=== PATIENT | female | born 1975 | race Caucasian/White ===

== ENCOUNTER 2017-01-13 14:43 | Emergency (ER) | payer MEDICAID ==
[2017-01-13] MEDS ORDERED: HYDROmorphone 1 MG/ML Syringe IVPUSH ONE (14:56)
[2017-01-13] MEDS ORDERED: Sodium Chloride 0.9% 1,000 ML IV ONE (14:56)
[2017-01-13] MEDS ORDERED: Ondansetron 4 MG/2 ML SDV IVPUSH ONE (14:56)
[2017-01-13] MEDS ORDERED: methylPREDNISolone Sodium Succinate 125 MG/2 ML SDV IVPUSH ONE (15:02)
--- NOTE | 2017-01-13 15:02 | EDM.PDOC ---
ED HPI GENERAL MEDICAL PROBLEM - General Stated Complaint: VOMITTING Time Seen by Provider: 01/13/17 14:46 Source of Information: Reports: Patient History Limitations: Reports: No Limitations - History of Present Illness INITIAL COMMENTS - FREE TEXT/NARRATIVE: Patient presents with abdominal pain for a six days, nausea started yesterday and today has frequent vomiting. No diarrhea or constipation and is passing normal stools. She has Crohns, Ulcerative Colitis and Diverticulosis with history of Diverticulitis. She moved here a month ago from [place] when she was no longer able to work and couldn't get medical care. Her mother lives here and pt says "I'll be a frequent flyer here". She takes hydrocodone prn for pain , promethazine prn for N/V, Apriso for Crohns. When she gets these episodes, which has happened numerous times, she usually gets Dilaudid, promethazine, IV steroid. She saw KAITLYNN Benton in clinic yesterday and was given Rx for a steroid that she hasn't received yet in the mail. She says that over the past two years since all this started, she has had to go to ER with exacerbations about every 7-10 days. Shortly before leaving [place] she started the Apriso which along with prednisone seemed to work better than anything else she has tried. The Apriso costs 1600./mo and couldn't afford it in [place] since she didn 't qualify for medical assistance without any dependent children. Until this episode she has gone over a month without exacerbations, which she attributes to the new regimen. She was on a prednisone taper from 100mg x 10 days, 50mg x 10 days, 20 mg x 10 days, 10 mg x 10 days then off. She finished this regimen on January 01 and continued on the Apriso which apparently isn't adequate without the prednisone to control her flares. She is waiting for the new steroid, Budesonide 3 mg (3 tabs/day) which should come in a couple days. Abdomen Pain Score (Numeric/FACES): 10 - Related Data Allergies Allergy/AdvReac Type Severity Reaction Status Date / Time metronidazole [From Flagyl] Allergy Nausea and Verified 01/13/17 15:35 Vomiting morphine Allergy Hives Verified 01/13/17 15:35 Home Meds: Home Meds ClonazePAM [KlonoPIN] 0.5 mg PO BEDTIME 01/13/17 [History] Hydrocodone/Acetaminophen [Hydrocodon-Acetaminophn 10-325] 1 - 2 tab PO Q6H PRN 01/13/17 [History] Mesalamine [Apriso] 1.5 gm PO DAILY 01/13/17 [History] Prednisone [IJD: predniSONE] 20 mg PO WITHBREAKFAST 01/13/17 [History] Promethazine [Phenergan] 25 mg PO Q4H PRN 01/13/17 [History] ED ROS GENERAL - Review of Systems Review Of Systems: See Below Constitutional: Denies: Fever, Chills, Malaise, Weakness HEENT: Denies: Ear Pain, Throat Pain, Vision Change Respiratory: Denies: Shortness of Breath, Cough Cardiovascular: Denies: Chest Pain, Lightheadedness, Syncope GI/Abdominal: Reports: Abdominal Pain, Nausea, Vomiting. Denies: Constipation, Diarrhea : Denies: Dysuria, Flank Pain Musculoskeletal: Reports: No Symptoms Skin: Denies: Cyanosis, Jaundice, Mottled, Pallor, Diaphoresis Neurological: Denies: Confusion, Dizziness, Seizure, Syncope Psychiatric: Reports: Anxiety (takes Klonopin). Denies: Agitation ED EXAM, GI/ABD - Physical Exam Exam: See Below Exam Limited By: No Limitations General Appearance: Alert, WD/WN, No Apparent Distress Eyes: Bilateral: Normal Appearance, EOMI Ears: Normal External Exam, Hearing Grossly Normal Nose: Normal Inspection, No Blood Throat/Mouth: Normal Inspection, Normal Lips, Normal Voice, No Airway Compromise Head: Atraumatic, Normocephalic Neck: Normal Inspection, Supple, Non-Tender, Full Range of Motion Respiratory/Chest: No Respiratory Distress, Lungs Clear, Normal Breath Sounds, No Accessory Muscle Use Cardiovascular: Regular Rate, Rhythm, No Murmur GI/Abdominal Exam: Normal Bowel Sounds, Soft, No Organomegaly, Tender (general, non-localized) Back Exam: No: CVA Tenderness (L), CVA Tenderness (R) Extremities: Normal Inspection, Normal Range of Motion, Non-Tender, No Pedal Edema Neurological: Alert, Oriented, Normal Cognition, No Motor/Sensory Deficits Psychiatric: Normal Affect, Normal Mood Skin Exam: Warm, Dry, Intact, Normal Color, No Rash Course - Vital Signs Last Recorded V/S: Last Vital Signs Temp 98.8 F 01/13/17 15:25 Pulse 122 H 01/13/17 15:25 Resp 20 01/13/17 15:25 BP 134/78 01/13/17 15:25 Pulse Ox 100 01/13/17 15:25 - Orders/Labs/Meds Labs: Laboratory Tests 01/13/17 01/13/17 Range/Units 15:00 15:00 WBC 12.0 H (5.0-10.0) 10^3/uL RBC 4.99 (3.80-5.50) 10^6/uL Hgb 14.7 (12.0-16.0) g/dL Hct 44.4 (37.0-47.0) % MCV 89.0 (82.0-92.0) fL MCH 29.4 (27.0-31.0) pg MCHC 33.0 (32.0-36.0) g/dL RDW 12.5 (11.5-14.5) % Plt Count 212 (150-300) 10^3/uL MPV 7.7 (7.4-10.4) fL Neut % (Auto) 93.1 H (50.0-70.0) % Lymph % (Auto) 5.9 L (20.0-40.0) % [place] % (Auto) 0.8 L (2.0-8.0) % Eos % (Auto) 0.0 L (1.0-3.0) % Baso % (Auto) 0.2 (0.0-1.0) % Neut # (Auto) 11.2 H (2.5-7.0) 10^3/uL Lymph # (Auto) 0.7 L (1.0-4.0) 10^3/uL [place] # (Auto) 0.1 (0.1-0.8) 10^3/uL Eos # (Auto) 0.0 L (0.1-0.3) 10^3/uL Baso # (Auto) 0.0 (0.0-0.1) 10^3/uL Sodium 135 L (136-145) mmol/L Potassium 4.4 (3.3-5.3) mmol/L Chloride 100 (98-115) mmol/L Carbon Dioxide 26.1 (21.0-32.0) mmol/L BUN 9 (6-25) mg/dL Creatinine 0.54 (0.51-1.17) mg/dL Est Cr Clr Drug Dosing TNP Estimated GFR (MDRD) > 60 mL/min Glucose 119 H (70-110) mg/dL Calcium 9.0 (8.7-10.3) mg/dL Total Bilirubin 0.3 (0.2-1.0) mg/dL AST 22 (15-37) U/L ALT 14 (12-78) U/L Alkaline Phosphatase 90 (46-116) IU/L C-Reactive Protein 11.6 H (0.0-0.9) mg/dL Total Protein 7.4 (6.4-8.2) g/dL Albumin 3.24 (3.00-4.80) g/dL Lipase 174 (73-393) U/L Meds: Medications Discontinued Medications Generic Name Dose Route Start Last Admin Trade Name Freq PRN Reason Stop Dose Admin Hydromorphone HCl 1 mg 01/13/17 14:56 01/13/17 15:20 Dilaudid IVPUSH 01/13/17 14:57 1 mg ONETIME ONE Administration Sodium Chloride 1,000 mls @ 999 mls/hr 01/13/17 14:56 01/13/17 15:20 Normal Saline IV 01/13/17 15:56 999 mls/hr .BOLUS ONE Administration Methylprednisolone Sodium Succinate 125 mg 01/13/17 15:02 01/13/17 15:43 Solu-Medrol IVPUSH 01/13/17 15:03 125 mg ONETIME ONE Administration Ondansetron HCl 8 mg 01/13/17 14:56 01/13/17 15:30 Zofran IVPUSH 01/13/17 14:57 8 mg ONETIME ONE Administration - Re-Assessments/Exams Free Text/Narrative Re-Assessment/Exam: 01/13/17 15:57 Labs show WBC 12.0 with 93% neuts and CRP of 11.6; she has no idea what previous CRP results have been. She says her last big workup was in late November with a CT, upper GI, colonoscopy and she was hospitalized for 6 days at that time. She doesn't know if she had diverticulitis at that time. We discussed the difference between diverticulosis and diverticulitis which she didn't know before. She tells me that with her previous episodes/flares she sometimes has been given antibiotics and sometimes not; and also has had fevers with some and others didn't. She has had several CT scans and wants to avoid the radiation if possible. She says her records from [place] were sent to Magda in clinic here. 01/13/17 16:17 Pain dropped to 5/10 after Dilaudid but is back up to 7 now. She says she always has some baseline pain with these flares. Her nausea has started again with the increase in pain. Will give hydrocodone now. Still trying to access her records. 01/13/17 17:20 Patient is now comfortable and ready to go home. [facility] is in the middle of a system update and inaccessible to us so we can't find out her baseline labs. I discussed case with PCP, Magda Tong who doesn't know what past labs are either. Her plan is to get pt off narcotics completely in the near future. The nurse came and informed me that the patient is still having pain and nausea but after further discussion with her she wants to go home and manage with her home meds and wait for the steroid to kick in again rather than be admitted here or get a CT. She says her past episodes without fever didn't require antibiotics and we discussed that this is likely a Crohns flare rather than diverticulitis which she agrees. Patient discharged in stable condition. Departure - Departure Time of Disposition: 17:16 Disposition: Home, Self-Care 01 Condition: Good Clinical Impression: Crohns disease Qualifiers: Gastrointestinal tract location: unspecified location - Discharge Information Additional Instructions: 1. Continue your regular medications as directed. 2. Follow up with your PCP in next couple days if worsening or not resolving, otherwise follow up in 1-2 weeks.
[2017-01-13 15:28] LABS: CHLORIDE,CL 100 mmol/L (98-115); SODIUM,NA 135 mmol/L (136-145)
[2017-01-13] MEDS ORDERED: Acetaminophen/HYDROcodone 325-10 MG Tab PO ONE (16:16)
== END 2017-01-13 17:38 | disposition home or self-care (01) ==
LOC: KA.ED 14:43 → MERGE 14:43 → KA.ED 17:38
DX: K50.90 Crohn's disease, unspecified, without complications (principal); Z88.1 Allergy status to other antibiotic agents; Z79.899 Other long term (current) drug therapy; Z88.5 Allergy status to narcotic agent
CPT/HCPCS: 80053; 83690; 85025; 86140; 96361; 96374; 96375; 99284; A9270; J1170; J2405; J2930; J7030

== ENCOUNTER 2017-02-16 11:39 | Emergency (ER) | payer MEDICAID ==
[2017-02-16] MEDS ORDERED: Sodium Chloride 0.9% 1,000 ML IV ONE (12:03)
[2017-02-16] MEDS ORDERED: HYDROmorphone 1 MG/ML Syringe IVPUSH ONE ×3 (12:04→13:50)
[2017-02-16] MEDS ORDERED: Ondansetron 4 MG/2 ML SDV IVPUSH ONE (12:04)
[2017-02-16] MEDS ORDERED: Promethazine 25 MG/ML SDV ONE (12:34)
[2017-02-16] MEDS ORDERED: Promethazine 12.5 MG in Sodium Chloride 0.9% 50 ML IV PRN (12:44)
[2017-02-16 12:49] LABS: CHLORIDE,CL 105 mmol/L (98-115); SODIUM,NA 142 mmol/L (136-145)
[2017-02-16] MEDS ORDERED: Iopamidol 612 MG/ML 75 ML Bottle IV ONE (13:42)
[2017-02-16] MEDS ORDERED: Iopamidol 755 Mg/ML 75 ML Bottle IVPUSH ONE (13:42)
[2017-02-16] MEDS ORDERED: Sodium Chloride 0.9% 50 ML SDV FLUSH SCH (13:45)
[2017-02-16] MEDS ORDERED: HYDROmorphone 1 MG/ML Syringe ONE (13:49)
[2017-02-16] MEDS ORDERED: metroNIDAZOLE/Normal Saline 500 MG in Premix Bag 1 BAG IV ONE (14:23)
--- NOTE | 2017-02-16 14:45 | EDM.PDOC ---
ED HPI GENERAL MEDICAL PROBLEM - General Chief Complaint: Abdominal Pain Stated Complaint: abdominal pain Time Seen by Provider: 02/16/17 12:00 Source of Information: Reports: Patient, Family (mother) History Limitations: Reports: No Limitations - History of Present Illness INITIAL COMMENTS - FREE TEXT/NARRATIVE: 42-year-old female presents to emergency room with complaints of pain over the last hours. Patient states that she's been recently diagnosed with Crohn's, ulcerative colitis and diverticulitis. She was seen and the admitted in the hospital back in November where she was currently living in [place]. She has recently moved up to [place], [place] where she was born and raised. She has recently transferred her primary care to RENÉ Benton. She's currently on oral prednisone. She is no so over the last 48-72 hours she's had increasing cramping and has been passing mucus in her stool. She denies any blood in her stool and denies hematuria. She has denies much of an appetite. She has not been drinking significant amount of fluids although denies restricting fluids. She notices that the pain is in her lower abdominal area both right and left. She did feel she was having a temperature earlier today and set her temperature was 101.2. She took some Tylenol about an hour before presenting to the emergency room. Her temperature is 97.4. She's not tachycardic and her blood pressure is stable. Did experience some vomiting yesterday and has been continuously nauseated. She does take some Phenergan. She has a prescription for hydrocodone 10/325. She has been taking this about every 6 hours by mouth over the last week. She denies any shortness of breath, chest pain. She denies significant swelling in her legs. She denies any recent upper respiratory infection, cough/congestion. 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 Left Lower Abdomen Pain Score (Numeric/FACES): 8 - Related Data Allergies Allergy/AdvReac Type Severity Reaction Status Date / Time metronidazole [From Flagyl] Allergy Nausea and Verified 02/16/17 12:45 Vomiting morphine Allergy Hives Verified 02/16/17 12:45 Home Meds: Home Meds Hydrocodone/Acetaminophen [Hydrocodon-Acetaminophn 10-325] 1 - 2 tab PO Q6H PRN 01/13/17 [History] Mesalamine [Apriso] 1.5 gm PO DAILY 01/13/17 [History] Prednisone [IJD: predniSONE] 20 mg PO WITHBREAKFAST 01/13/17 [History] Promethazine [Phenergan] 25 mg PO Q4H PRN 01/13/17 [History] busPIRone [Buspar] 5 mg PO BID 02/16/17 [History] Past Medical History Gastrointestinal History: Reports: Diverticulosis, Irritable Bowel Syndrome, Other (See Below) Other Gastrointestinal History: Crohns diagnosed in 2016 by ambulatory care in [place], [place] [employer]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: Psychiatric History: Reports: Anxiety - Past Surgical History GI Surgical History: Reports: Colonoscopy Social & Family History - Tobacco Use Smoking Status *Q: Current Every Day Smoker Years of Tobacco use: 25 Packs/Tins Daily: 1 Second Hand Smoke Exposure: Yes - Caffeine Use Caffeine Use: Reports: Coffee, Soda - Recreational Drug Use Recreational Drug Use: No Drug Use in Last 12 Months: Yes Recreational Drug Type: Reports: Marijuana/Hashish Recreational Drug Use Frequency: Socially ED ROS GENERAL - Review of Systems Review Of Systems: See Below Constitutional: Reports: Fever, Weight Loss HEENT: Reports: No Symptoms Respiratory: Reports: No Symptoms Cardiovascular: Reports: No Symptoms Endocrine: Reports: No Symptoms GI/Abdominal: Reports: Abdominal Pain, Anorexia, Decreased Appetite, Mucous in Stool, Nausea, Vomiting. Denies: Bloody Stool, Diarrhea, Distension : Denies: Discharge, Dysuria, Hematuria Musculoskeletal: Reports: No Symptoms Skin: Reports: No Symptoms Neurological: Reports: No Symptoms Psychiatric: Reports: Anxiety Hematologic/Lymphatic: Reports: No Symptoms Immunologic: Reports: No Symptoms ED EXAM, GI/ABD - Physical Exam Exam: See Below Exam Limited By: No Limitations General Appearance: Alert, WD/WN, No Apparent Distress Eyes: Bilateral: Normal Appearance, EOMI Ears: Normal External Exam, Normal Canal, Hearing Grossly Normal, Normal TMs Nose: Normal Inspection, Normal Mucosa, No Blood Throat/Mouth: Normal Inspection, Normal Lips, Normal Teeth, Normal Gums, Normal Oropharynx, Normal Voice, No Airway Compromise Head: Atraumatic, Normocephalic Neck: Normal Inspection, Supple, Non-Tender, Full Range of Motion Respiratory/Chest: No Respiratory Distress, Lungs Clear, Normal Breath Sounds Cardiovascular: Normal Peripheral Pulses, Regular Rate, Rhythm, No Murmur GI/Abdominal Exam: Normal Bowel Sounds, No Distention, No Abnormal Bruit, No Mass, Pelvis Stable, Tender (RLQ, LLQ). No: Hepatomegaly, Splenomegaly Back Exam: Normal Inspection, Full Range of Motion Extremities: Normal Inspection, Normal Range of Motion, Non-Tender, No Pedal Edema, Normal Capillary Refill Neurological: Alert, Oriented, Normal Cognition, Normal Gait, No Motor/Sensory Deficits Psychiatric: Normal Affect, Normal Mood Skin Exam: Warm, Dry, Intact, Normal Color, No Rash Lymphatic: No Adenopathy Course - Vital Signs Last Recorded V/S: Last Vital Signs Temp 98.2 F 02/16/17 14:15 Pulse 88 02/16/17 14:15 Resp 16 02/16/17 14:15 BP 100/52 L 02/16/17 14:15 Pulse Ox 96 02/16/17 14:15 - Orders/Labs/Meds Orders: Active Orders 24 hr Category Date Time Status Abdomen Pelvis w Cont [CT] Stat Exams 02/16/17 13:01 Ordered Ciprofloxacin [Ciprofloxacin HCl] Med 02/16/17 21:00 Ordered 250 mg PO BID Promethazine [Phenergan] 12.5 mg Med 02/16/17 12:44 Active Sodium Chloride 0.9% [Normal Saline] 50 ml IV Q6H Sodium Chloride 0.9% [Normal Saline] Med 02/16/17 13:45 Active 50 ml FLUSH ASDIRECTED metroNIDAZOLE/Normal Saline [Flagyl 500 MG in NS 100 ML Med 02/16/17 14:23 Ordered ] 500 mg Premix Bag 1 bag IV ONETIME Medication Orders Ciprofloxacin (Ciprofloxacin Hcl) 250 mg PO BID STEVEN Promethazine HCl 12.5 mg/ (Sodium Chloride) 50.5 mls @ 200 mls/hr IV Q6H PRN PRN Reason: Nausea/Vomiting Last Admin: 02/16/17 12:45 Dose: 200 mls/hr Metronidazole 500 mg/ Premix 100 mls @ 100 mls/hr IV ONETIME ONE Stop: 02/16/17 15:22 Last Admin: 02/16/17 14:35 Dose: 100 mls/hr Sodium Chloride (Normal Saline) 50 ml FLUSH ASDIRECTED [facility] Labs: Laboratory Tests 02/16/17 02/16/17 02/16/17 Range/Units 12:20 12:20 13:20 WBC 17.0 H (5.0-10.0) 10^3/uL RBC 4.48 (3.80-5.50) 10^6/uL Hgb 13.2 (12.0-16.0) g/dL Hct 40.2 (37.0-47.0) % MCV 89.9 (82.0-92.0) fL MCH 29.6 (27.0-31.0) pg MCHC 32.9 (32.0-36.0) g/dL RDW 14.1 (11.5-14.5) % Plt Count 239 (150-300) 10^3/uL MPV 7.0 L (7.4-10.4) fL Neut % (Auto) 90.6 H (50.0-70.0) % Lymph % (Auto) 6.6 L (20.0-40.0) % [place] % (Auto) 0.6 L (2.0-8.0) % Eos % (Auto) 0.1 L (1.0-3.0) % Baso % (Auto) 2.1 H (0.0-1.0) % Neut # (Auto) 15.4 H (2.5-7.0) 10^3/uL Lymph # (Auto) 1.1 (1.0-4.0) 10^3/uL [place] # (Auto) 0.1 (0.1-0.8) 10^3/uL Eos # (Auto) 0.0 L (0.1-0.3) 10^3/uL Baso # (Auto) 0.4 H (0.0-0.1) 10^3/uL Sodium 142 (136-145) mmol/L Potassium 4.2 (3.3-5.3) mmol/L Chloride 105 (98-115) mmol/L Carbon Dioxide 26.9 (21.0-32.0) mmol/L BUN 11 (6-25) mg/dL Creatinine 0.53 (0.51-1.17) mg/dL Est Cr Clr Drug Dosing 101.35 mL/min Estimated GFR (MDRD) > 60 mL/min Glucose 105 (70-110) mg/dL Calcium 8.2 L (8.7-10.3) mg/dL Total Bilirubin 0.1 L (0.2-1.0) mg/dL AST 50 H (15-37) U/L ALT 38 (12-78) U/L Alkaline Phosphatase 64 (46-116) IU/L Total Protein 6.6 (6.4-8.2) g/dL Albumin 2.84 L (3.00-4.80) g/dL Specimen Type Urincc Urine Color Yellow (YELLOW) Urine Appearance Clear (CLEAR) Urine pH 6.5 (5.0-9.0) Ur Specific [place] 1.015 (1.005-1.030) Urine Protein Negative (NEGATIVE) mg/dL Urine Glucose (UA) Negative (NEGATIVE) mg/dL Urine Ketones Negative (NEGATIVE) mg/dL Urine Occult Blood Negative (NEGATIVE) Urine Nitrite Negative (NEGATIVE) Urine Bilirubin Negative (NEGATIVE) Urine Urobilinogen 0.2 (0.2-1.0) E.U./dL Ur Leukocyte Esterase Negative (NEGATIVE) Urine RBC 0-5 /HPF Urine WBC 0-5 /HPF Ur Epithelial Cells Moderate H /LPF Urine Bacteria Few (NONE TO FEW) /HPF Meds: Medications Generic Name Dose Route Start Last Admin Trade Name Freq PRN Reason Stop Dose Admin Ciprofloxacin 250 mg 02/16/17 21:00 Ciprofloxacin Hcl PO BID STEVEN Promethazine HCl 12.5 mg/ 50.5 mls @ 200 mls/hr 02/16/17 12:44 02/16/17 12:45 Sodium Chloride IV 200 mls/hr Q6H PRN Administration Nausea/Vomiting Metronidazole 500 mg/ Premix 100 mls @ 100 mls/hr 02/16/17 14:23 02/16/17 14: 35 IV 02/16/17 15:22 100 mls/hr ONETIME ONE Administration Sodium Chloride 50 ml 02/16/17 13:45 Normal Saline FLUSH ASDIRECTED STEVEN Discontinued Medications Generic Name Dose Route Start Last Admin Trade Name Freq PRN Reason Stop Dose Admin Diphenhydramine HCl Confirm 02/16/17 14:57 Benadryl Administered 02/16/17 14:58 Dose 50 mg .ROUTE .STK-MED ONE Diphenhydramine HCl 50 mg 02/16/17 15:00 Benadryl PO 02/16/17 15:01 ONETIME ONE Hydromorphone HCl 1 mg 02/16/17 12:04 02/16/17 12:32 Dilaudid IVPUSH 02/16/17 12:05 1 mg ONETIME ONE Administration Hydromorphone HCl 1 mg 02/16/17 13:04 02/16/17 13:10 Dilaudid IVPUSH 02/16/17 13:05 1 mg ONETIME ONE Administration Hydromorphone HCl Confirm 02/16/17 13:49 02/16/17 13:50 Dilaudid Administered 02/16/17 13:50 Not Given Dose 1 mg .ROUTE .STK-MED ONE Hydromorphone HCl 1 mg 02/16/17 13:50 02/16/17 13:50 Dilaudid IVPUSH 02/16/17 13:51 1 mg ONETIME ONE Administration Sodium Chloride 1,000 mls @ 999 mls/hr 02/16/17 12:03 02/16/17 12:25 Normal Saline IV 02/16/17 13:03 999 mls/hr .BOLUS ONE Administration Iopamidol 75 ml 02/16/17 13:42 Isovue-370 (76%) IVPUSH 02/16/17 13:43 ONETIME ONE Ondansetron HCl 4 mg 02/16/17 12:04 02/16/17 13:17 Zofran IVPUSH 02/16/17 12:05 Not Given ONETIME ONE Promethazine HCl Confirm 02/16/17 12:34 02/16/17 13:17 Phenergan Administered 02/16/17 12:35 Not Given Dose 25 mg .ROUTE .STK-MED ONE - Radiology Interpretation Free Text/Narrative:: CT abdomen pelvis with IV contrast Findings Liver and spleen are unremarkable kidneys and adrenals show no abnormality aorta and pancreas are within normal limits there is no bowel distention there is at best mild bowel distention in the distal ileum there is no separation There is no creeping fat sign of bowel loops there is no inflammatory change in the mesenteric fat there is no comb sign There is no particular erythema in the mesenteric vessels There is no creeping fat sign There is no free fluid or free air There is no adenopathy Atherosclerotic changes are advanced for age The pelvis shows no mass, free fluid, abscess, inflammatory change, or adenopathy Impression No definite acute process Questionable mild thickening of the wall of the distal small bowel. CT Results Date: 02/16/17 CT Results Time: 13:51 - Re-Assessments/Exams Free Text/Narrative Re-Assessment/Exam: 02/16/17 15:08 1L NS given. Total 3mg Dilaudid given, 1mg per time. Pain improved. Pain 4/10. Departure - Departure Time of Disposition: 15:35 Disposition: Home, Self-Care 01 Condition: Good Clinical Impression: Abdominal pain Qualifiers: Abdominal location: lower abdomen, unspecified Qualified Code(s): R10.30 - Lower abdominal pain, unspecified - Discharge Information Instructions: Diverticulitis, Ulcerative Colitis, Adult, Crohn Disease Referrals: Magda Tong PA-C [Primary Care Provider] - Forms: ED Department Discharge Additional Instructions: 1. [place] 10/325 1 PO Q 6 hrs prn. Disp:#10 2. Rest/[place] diet, hydration. 3. Cipro 250mg BID for 10 days. 4. F/u on Sunday with Magda Tong PAC 5. F/u with Gastro in [place] on Sunday. - My Orders Last 24 Hours: My Active Orders 02/16/17 12:44 Promethazine [Phenergan] 12.5 mg Sodium Chloride 0.9% [Normal Saline] 50 ml IV Q6H 02/16/17 13:01 Abdomen Pelvis w Cont [CT] Stat 02/16/17 13:45 Sodium Chloride 0.9% [Normal Saline] 50 ml FLUSH ASDIRECTED 02/16/17 14:23 metroNIDAZOLE/Normal Saline [Flagyl 500 MG in NS 100 ML] 500 mg Premix Bag 1 bag IV ONETIME 02/16/17 21:00 Ciprofloxacin [Ciprofloxacin HCl] 250 mg PO BID - Assessment/Plan Last 24 Hours: My Active Orders 02/16/17 12:44 Promethazine [Phenergan] 12.5 mg Sodium Chloride 0.9% [Normal Saline] 50 ml IV Q6H 02/16/17 13:01 Abdomen Pelvis w Cont [CT] Stat 02/16/17 13:45 Sodium Chloride 0.9% [Normal Saline] 50 ml FLUSH ASDIRECTED 02/16/17 14:23 metroNIDAZOLE/Normal Saline [Flagyl 500 MG in NS 100 ML] 500 mg Premix Bag 1 bag IV ONETIME 02/16/17 21:00 Ciprofloxacin [Ciprofloxacin HCl] 250 mg PO BID Assessment:: 1. abdominal pain 2. Recent diagnosis of Crohn's disease 3. Recent diagnosis of ulcerative colitis. 4. Recent diagnosis of diverticulitis. Plan: 1. Patient was given 500 of IV Flagyl in the ER. 2. We'll start her on Cipro 250 mg twice a day for 10 days. 3. For her pain discomfort we'll give her [place] 10/325 one every 6 hours when necessary #10 dispensed. Her pain medications were refilled by her primary. 4. We'll have her follow-up with Magda MERRITT on Sunday. 5. She has an appointment in [place] Sunday with a ambulatory care. 6. She will continue with her oral prednisone. 7. Rest/[place] diet, hydration.
[2017-02-16] MEDS ORDERED: diphenhydrAMINE 25 MG Cap ONE (14:57)
[2017-02-16] MEDS ORDERED: diphenhydrAMINE 25 MG Cap PO ONE (15:00)
[2017-02-16] MEDS ORDERED: Ciprofloxacin 250 MG Tab PO SCH (21:00)
[2017-02-17] MEDS ORDERED: Sodium Chloride 0.9% 50 ML SDV FLUSH ONE (13:45)
[2017-02-17] MEDS ORDERED: Iopamidol 612 MG/ML 75 ML Bottle IV PRN (14:00)
== END 2017-02-16 15:40 | disposition home or self-care (01) ==
LOC: MERGE 11:39 → KA.ED 11:39
DX: K50.90 Crohn's disease, unspecified, without complications (principal); K57.92 Diverticulitis of intestine, part unspecified, without perforation or abscess without bleeding; Z88.5 Allergy status to narcotic agent; Z88.8 Allergy status to other drugs, medicaments and biological substances; Z79.899 Other long term (current) drug therapy; F17.210 Nicotine dependence, cigarettes, uncomplicated
CPT/HCPCS: 74177; 80053; 81001; 85025; 96361; 96365; 96367; 96375; 96376; 99284; A9270; J1170; J2550; J7030; J7050; Q9967

== ENCOUNTER 2017-02-21 11:01 | Emergency (ER) | payer MEDICAID ==
[2017-02-21] MEDS ORDERED: Metoclopramide 10 MG/2 ML SDV IVPUSH ONE (11:23)
[2017-02-21] MEDS ORDERED: Sodium Chloride 0.9% 1,000 ML IV ONE (11:23)
[2017-02-21] MEDS ORDERED: Sodium Chloride 0.9% 5 ML Syringe FLUSH PRN (11:23)
[2017-02-21] MEDS ORDERED: Ciprofloxacin 500 MG Tab PO ONE (12:05)
[2017-02-21] MEDS ORDERED: metroNIDAZOLE/Normal Saline 500 MG in Premix Bag 1 BAG IV ONE (12:05)
[2017-02-21] MEDS ORDERED: fentaNYL 250 MCG/5 ML SDV IVPUSH ONE (12:06)
[2017-02-21 12:09] LABS: CHLORIDE,CL 105 mmol/L (98-115); SODIUM,NA 143 mmol/L (136-145)
[2017-02-21] MEDS ORDERED: fentaNYL 100 MCG/2 ML SDV ONE (12:12)
--- NOTE | 2017-02-21 12:18 | EDM.PDOC ---
ED HPI GENERAL MEDICAL PROBLEM - General Chief Complaint: Abdominal Pain Stated Complaint: ABDOMINAL PAIN Time Seen by Provider: 02/21/17 12:05 Source of Information: Reports: Patient History Limitations: Reports: No Limitations - History of Present Illness INITIAL COMMENTS - FREE TEXT/NARRATIVE: PATIENT IS A 42-YEAR-OLD FEMALE WHO PRESENTS EMERGENCY DEPARTMENT THIS MORNING FOR COMPLAINT OF ABDOMINAL PAIN. PATIENT WAS SEEN HERE IN THE EMERGENCY DEPARTMENT ON 02/16/2017 AND DIAGNOSED WITH SUSPECTED DIVERTICULITIS. PATIENT WAS STARTED ON CIPRO BUT NOT FLAGYL BECAUSE OF A DESCRIBED ADVERSE REACTION. PATIENT FOLLOW-UP AT THE [facility] ON 02/19/2017 AND LAB WORK WAS PERFORMED. ON 02/16/2017. WBC WAS 17, ON 02/19/17 WBC WAS 12.8. DISCUSSED CASE WITH MAGDA TONG AND THERE WAS A CONCERN FOR NARCOTIC ABUSE. PATIENT WAS ALSO SEEN ON 02/20/2017 AT [facility] IN [place]. THE PLAN WAS TO TAKE PREDNISONE WITH A DECREASING DAILY DOSAGE FOR 1 WEEK. PATIENT STATES SHE' S HAD SEVERAL EPISODES OF NAUSEA AND VOMITING, BUT DENIES BLOOD IN STOOL, OR IN VOMIT. PATIENT PRESENTS WITH MOTHER WHO WAS ALSO CONCERNED ABOUT NARCOTIC USE BECAUSE PATIENT HAS USED HER NARCOTICS IN THE PAST. PATIENT IS REQUESTING DILAUDID IV TODAY. Onset: Gradual Duration: Day(s): Location: Reports: Abdomen Quality: Reports: Ache Severity: Moderate Improves with: Reports: None Worsens with: Reports: None Associated Symptoms: Reports: Nausea/Vomiting Abdominal Pain Score (Numeric/FACES): 10 - Related Data Allergies Allergy/AdvReac Type Severity Reaction Status Date / Time metronidazole [From Flagyl] Allergy Nausea and Verified 02/21/17 11:12 Vomiting morphine Allergy Hives Verified 02/21/17 11:12 Home Meds: Home Meds Hydrocodone/Acetaminophen [Hydrocodon-Acetaminophn 10-325] 1 tab PO Q4H PRN 06/26 [History] Prednisone [IJD: predniSONE] 40 mg PO ASDIRECTED 01/13/17 [History] Promethazine [Phenergan] 25 mg PO Q4H PRN 01/13/17 [History] busPIRone [Buspar] 5 mg PO BID 02/16/17 [History] Ciprofloxacin [Ciprofloxacin HCl] 500 mg PO DAILY 02/21/17 [History] Past Medical History Gastrointestinal History: Reports: Diverticulosis, Irritable Bowel Syndrome, Other (See Below) Other Gastrointestinal History: Crohns diagnosed in 2016 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[place], [place]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 Constitutional: Reports: No Symptoms HEENT: Reports: No Symptoms Respiratory: Reports: No Symptoms Cardiovascular: Reports: No Symptoms Endocrine: Reports: No Symptoms GI/Abdominal: Reports: Abdominal Pain, Nausea, Vomiting : Reports: No Symptoms Musculoskeletal: Reports: No Symptoms Skin: Reports: No Symptoms Neurological: Reports: No Symptoms Psychiatric: Reports: No Symptoms Hematologic/Lymphatic: Reports: No Symptoms Immunologic: Reports: No Symptoms ED EXAM, GI/ABD - Physical Exam Exam: See Below Exam Limited By: No Limitations General Appearance: Alert, WD/WN, No Apparent Distress Nose: Normal Inspection Throat/Mouth: Normal Inspection, Normal Oropharynx, No Airway Compromise Head: Atraumatic, Normocephalic Neck: Normal Inspection Respiratory/Chest: No Respiratory Distress, Lungs Clear, Normal Breath Sounds, No Accessory Muscle Use, Chest Non-Tender Cardiovascular: Regular Rate, Rhythm, No Murmur GI/Abdominal Exam: Normal Bowel Sounds, Soft, Tender (DIFFUSELY). No: Guarding , Rigid, Rebound, Abnormal Bowel Sounds, Mass Back Exam: Normal Inspection. No: CVA Tenderness (L), CVA Tenderness (R) Extremities: Normal Inspection Neurological: Alert, Oriented, Normal Cognition Psychiatric: Normal Affect, Normal Mood Skin Exam: Warm, Dry, Intact, Normal Color, No Rash Course - Vital Signs Last Recorded V/S: Last Vital Signs Temp 98.1 F 02/21/17 11:08 Pulse 86 02/21/17 11:08 Resp 16 02/21/17 11:08 BP 127/65 02/21/17 11:08 Pulse Ox 97 02/21/17 11:08 - Orders/Labs/Meds Orders: Active Orders 24 hr Category Date Time Status Peripheral IV Care [RC] . DIRECTED Care 02/21/17 11:23 Active CBC WITH AUTO DIFF [HEME] Stat Lab 02/21/17 11:30 Results COMPREHENSIVE METABOLIC PN,CMP [CHEM] Stat Lab 02/21/17 11:30 Received MANUAL DIFFERENTIAL QA/NC [HEME] Stat Lab 02/21/17 11:30 Results Sodium Chloride 0.9% [Normal Saline] 1,000 ml Med 02/21/17 11:23 Active IV .BOLUS Sodium Chloride 0.9% [Syrex Flush] Med 02/21/17 11:23 Active 5 ml FLUSH Q8HR PRN metroNIDAZOLE/Normal Saline [Flagyl 500 MG in NS 100 ML Med 02/21/17 12:05 Ordered ] 500 mg Premix Bag 1 bag IV ONETIME Peripheral IV Insertion Adult [OM.PC] Routine Oth 02/21/17 11:23 Ordered Medication Orders Sodium Chloride (Normal Saline) 1,000 mls @ 999 mls/hr IV .BOLUS ONE Stop: 02/21/17 12:23 Last Admin: 02/21/17 11:33 Dose: 999 mls/hr Metronidazole 500 mg/ Premix 100 mls @ 100 mls/hr IV ONETIME ONE Stop: 02/21/17 13:04 Sodium Chloride (Syrex Flush) 5 ml FLUSH Q8HR PRN PRN Reason: Keep Vein Open Labs: Laboratory Tests 02/21/17 Range/Units 11:30 WBC 12.9 H (5.0-10.0) 10^3/uL RBC 4.22 (3.80-5.50) 10^6/uL Hgb 12.8 (12.0-16.0) g/dL Hct 37.9 (37.0-47.0) % MCV 89.9 (82.0-92.0) fL MCH 30.3 (27.0-31.0) pg MCHC 33.7 (32.0-36.0) g/dL RDW 14.7 H (11.5-14.5) % Plt Count 219 (150-300) 10^3/uL MPV 7.0 L (7.4-10.4) fL Add Manual Diff Yes Meds: Medications Generic Name Dose Route Start Last Admin Trade Name Freq PRN Reason Stop Dose Admin Sodium Chloride 1,000 mls @ 999 mls/hr 02/21/17 11:23 02/21/17 11:33 Normal Saline IV 02/21/17 12:23 999 mls/hr .BOLUS ONE Administration Metronidazole 500 mg/ Premix 100 mls @ 100 mls/hr 02/21/17 12:05 IV 02/21/17 13:04 ONETIME ONE Sodium Chloride 5 ml 02/21/17 11:23 Syrex Flush FLUSH Q8HR PRN Keep Vein Open Discontinued Medications Generic Name Dose Route Start Last Admin Trade Name Jose PRN Reason Stop Dose Admin Ciprofloxacin 500 mg 02/21/17 12:05 Ciprofloxacin Hcl PO 02/21/17 12:06 ONETIME ONE Fentanyl 100 mcg 02/21/17 12:06 Sublimaze IVPUSH 02/21/17 12:07 ONETIME ONE Metoclopramide HCl 10 mg 02/21/17 11:23 02/21/17 11:34 Reglan IVPUSH 02/21/17 11:24 10 mg ONETIME ONE Administration - Re-Assessments/Exams Free Text/Narrative Re-Assessment/Exam: 02/21/17 12:25 PATIENT AFEBRILE, NONTOXIC APPEARING, VITAL SIGNS STABLE. DISCOMFORT IS RESOLVED. MOTHER AT BEDSIDE. PATIENT WILL CONTINUE CIPRO 100 MG TWICE A DAY DIRECTED. AND FOLLOW-UP AT CLINIC SCHEDULED. Departure - Departure Time of Disposition: 13:00 Disposition: Home, Self-Care 01 Condition: Good Clinical Impression: Colitis Abdominal pain Qualifiers: Abdominal location: lower abdomen, unspecified Qualified Code(s): R10.30 - Lower abdominal pain, unspecified - Discharge Information Instructions: Nausea and Vomiting, Adult, [id number], Abdominal Pain, Adult, [id number], Colitis Referrals: Magda Tong PA-C [Primary Care Provider] - Additional Instructions: FOLLOW-UP AT [facility] IN NEXT 3-5 DAYS. - My Orders Last 24 Hours: My Active Orders 02/21/17 11:23 Peripheral IV Care [RC] . DIRECTED Sodium Chloride 0.9% [Normal Saline] 1,000 ml IV .BOLUS Sodium Chloride 0.9% [Syrex Flush] 5 ml FLUSH Q8HR PRN Peripheral IV Insertion Adult [OM.PC] Routine 02/21/17 11:30 CBC WITH AUTO DIFF [HEME] Stat COMPREHENSIVE METABOLIC PN,CMP [CHEM] Stat MANUAL DIFFERENTIAL QA/NC [HEME] Stat 02/21/17 12:05 metroNIDAZOLE/Normal Saline [Flagyl 500 MG in NS 100 ML] 500 mg Premix Bag 1 bag IV ONETIME - Assessment/Plan Last 24 Hours: My Active Orders 02/21/17 11:23 Peripheral IV Care [RC] . DIRECTED Sodium Chloride 0.9% [Normal Saline] 1,000 ml IV .BOLUS Sodium Chloride 0.9% [Syrex Flush] 5 ml FLUSH Q8HR PRN Peripheral IV Insertion Adult [OM.PC] Routine 02/21/17 11:30 CBC WITH AUTO DIFF [HEME] Stat COMPREHENSIVE METABOLIC PN,CMP [CHEM] Stat MANUAL DIFFERENTIAL QA/NC [HEME] Stat 02/21/17 12:05 metroNIDAZOLE/Normal Saline [Flagyl 500 MG in NS 100 ML] 500 mg Premix Bag 1 bag IV ONETIME Assessment:: ABDOMINAL PAIN, COLITIS Plan: FOLLOW-UP WITH PCP
== END 2017-02-21 13:15 | disposition home or self-care (01) ==
LOC: MERGE 11:01 → KA.ED 11:01
DX: K52.9 Noninfective gastroenteritis and colitis, unspecified (principal); F17.210 Nicotine dependence, cigarettes, uncomplicated; Z79.2 Long term (current) use of antibiotics; Z88.5 Allergy status to narcotic agent; Z88.1 Allergy status to other antibiotic agents
CPT/HCPCS: 80053; 85025; 96361; 96365; 96375; 99284; A9270; J2765; J3010; J7030

== ENCOUNTER 2017-06-21 10:32 | Emergency (ER) | payer MEDICAID ==
[2017-06-21] MEDS: Sodium Chloride 0.9% 1,000 ML IV ONE (10:40)
[2017-06-21] MEDS: Ondansetron 4 MG/2 ML SDV IVPUSH ONE (10:50)
[2017-06-21 10:55] VITALS: BP 116/79
[2017-06-21] MEDS: Ondansetron 4 MG/2 ML SDV ONE (11:08)
[2017-06-21] MEDS: HYDROmorphone 1 MG/ML Syringe IVPUSH ONE (11:09)
[2017-06-21 11:21] LABS: CHLORIDE,CL 107 mmol/L (98-115); SODIUM,NA 142 mmol/L (136-145)
--- NOTE | 2017-06-21 11:46 | EDM.PDOC ---
ED HPI GENERAL MEDICAL PROBLEM - General Chief Complaint: Abdominal Pain Stated Complaint: CHRONS FLARE UP Time Seen by Provider: 06/21/17 11:03 Source of Information: Reports: Patient History Limitations: Reports: No Limitations - History of Present Illness INITIAL COMMENTS - FREE TEXT/NARRATIVE: Patient is a 42-year-old female who presents to the emergency department this morning with a complaint of abdominal pain. Patient states pain has been going on for about 10 days, has gradually increased, and did notice some mucus in stool at times. However, denies any bleeding. Has had nausea without vomiting. Patient has been seen in this emergency department 6 times over the last 3 months for same symptoms along with several clinic visits. Patient has had multiple CAT scans and is currently seeing a fusion analyst. Patient is on chronic narcotics, Remicade, and also psych meds. Patient denies chest pain, shortness of breath, fever, bloody stool, dysuria, suspicion of , or any vaginal discharge. Onset: Gradual Duration: Chronic Location: Reports: Abdomen Quality: Reports: Ache Severity: Mild Improves with: Reports: None Worsens with: Reports: None Associated Symptoms: Reports: Nausea/Vomiting Treatments [employer]PER[employer]OR [employer] DEPARTMENT: Reports: Acetaminophen Left Lower Abdominal Pain Score (Numeric/FACES): 8 - Related Data Allergies Allergy/AdvReac Type Severity Reaction Status Date / Time metronidazole [From Flagyl] Allergy Nausea and Verified 06/21/17 10:55 Vomiting morphine Allergy Headache Verified 06/21/17 10:55 Home Meds: Home Meds Hydrocodone/Acetaminophen [Hydrocodon-Acetaminophn 10-325] 1 tab PO Q4H PRN 06/26 [History] Prednisone [IJD: predniSONE] 20 mg PO DAILY 01/13/17 [History] Promethazine [Phenergan] 25 mg PO Q4H PRN 01/13/17 [History] busPIRone [Buspar] 5 mg PO BID 02/16/17 [History] Dicyclomine [Bentyl] 20 mg PO BID PRN 03/18/17 [History] Past Medical History Gastrointestinal History: Reports: Diverticulosis, Irritable Bowel Syndrome, Other (See Below) Other Gastrointestinal History: Crohns diagnosed in 2016 by fusion analyst in [place], [place] Genitourinary History: Reports: 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: Psychiatric History: Reports: Anxiety, Depression, Panic Attack Dermatologic History: Reports: Eczema - Infectious Disease History Infectious Disease History: Reports: Chicken Pox - Past Surgical History GI Surgical History: Reports: Colonoscopy, EGD Female Surgical History: Reports: Tubal Ligation Dermatological Surgical History: Reports: None Social & Family History - Tobacco Use Smoking Status *Q: Current Every Day Smoker Years of Tobacco use: 15 Packs/Tins Daily: 0.5 Second Hand Smoke Exposure: Yes - Caffeine Use Caffeine Use: Reports: Coffee, Soda Other Caffeine Use: regular Caffeine Use Comment: did not ask - Recreational Drug Use Recreational Drug Use: Yes Drug Use in Last 12 Months: No Recreational Drug Type: Reports: Marijuana/Hashish Recreational Drug Use Frequency: Rarely ED ROS GENERAL - Review of Systems Review Of Systems: ROS reveals no pertinent complaints other than HPI. Constitutional: Reports: No Symptoms HEENT: Reports: No Symptoms Respiratory: Reports: No Symptoms Cardiovascular: Reports: No Symptoms Endocrine: Reports: No Symptoms GI/Abdominal: Reports: Abdominal Pain, Mucous in Stool, Nausea : Reports: No Symptoms Musculoskeletal: Reports: No Symptoms Skin: Reports: No Symptoms Neurological: Reports: No Symptoms Psychiatric: Reports: Anxiety, Depression. Denies: Homicidal Ideation, Suicidal Ideation Hematologic/Lymphatic: Reports: No Symptoms Immunologic: Reports: No Symptoms ED EXAM, GI/ABD - Physical Exam Exam: See Below Exam Limited By: No Limitations General Appearance: Alert, WD/WN, No Apparent Distress Nose: Normal Inspection, Normal Mucosa, No Blood Throat/Mouth: Normal Inspection, Normal Oropharynx, No Airway Compromise Head: Atraumatic, Normocephalic Neck: Normal Inspection, Supple Respiratory/Chest: No Respiratory Distress, Lungs Clear, Normal Breath Sounds, No Accessory Muscle Use, Chest Non-Tender Cardiovascular: Regular Rate, Rhythm, No Murmur GI/Abdominal Exam: Normal Bowel Sounds, Soft, Tender (Diffusely) Back Exam: Normal Inspection. No: CVA Tenderness (L), CVA Tenderness (R) Extremities: Normal Inspection, No Pedal Edema Neurological: Alert, Oriented, Normal Cognition Psychiatric: Normal Affect, Normal Mood Skin Exam: Warm, Dry, Intact, Normal Color, No Rash Lymphatic: No Adenopathy Course - Vital Signs Last Recorded V/S: Last Vital Signs Temp 95.8 F 06/21/17 10:52 Pulse Resp 16 06/21/17 10:52 BP 116/79 06/21/17 10:52 Pulse Ox 96 06/21/17 10:52 - Orders/Labs/Meds Orders: Active Orders 24 hr Category Date Time Status Abdomen 2V AP Upright Decub [CR] Stat Exams 06/21/17 11:37 Ordered Abdomen Comp [US] Stat Exams 06/21/17 11:34 Stop Req DRUG SCREEN, URINE [URCHEM] Stat Lab 06/21/17 11:32 Ordered URINALYSIS W/MICROSCOPIC [UA W/MICROSCOPIC] [URIN] Stat Lab 06/21/17 11:32 Ordered Labs: Laboratory Tests 06/21/17 06/21/17 06/21/17 Range/Units 10:40 10:40 11:00 WBC 14.9 H (5.0-10.0) 10^3/uL RBC 4.72 (3.80-5.50) 10^6/uL Hgb 14.3 (12.0-16.0) g/dL Hct 42.3 (37.0-47.0) % MCV 89.5 D (82.0-92.0) fL MCH 30.2 (27.0-31.0) pg MCHC 33.7 (32.0-36.0) g/dL RDW 13.9 (11.5-14.5) % Plt Count 307 H D (150-300) 10^3/uL MPV 7.5 (7.4-10.4) fL Neut % (Auto) 58.8 (50.0-70.0) % Lymph % (Auto) 30.6 (20.0-40.0) % [place] % (Auto) 8.4 H (2.0-8.0) % Eos % (Auto) 1.0 (1.0-3.0) % Baso % (Auto) 1.2 H (0.0-1.0) % Neut # (Auto) 8.7 H (2.5-7.0) 10^3/uL Lymph # (Auto) 4.6 H (1.0-4.0) 10^3/uL [place] # (Auto) 1.3 H (0.1-0.8) 10^3/uL Eos # (Auto) 0.1 (0.1-0.3) 10^3/uL Baso # (Auto) 0.2 H (0.0-0.1) 10^3/uL Sodium 142 (136-145) mmol/L Potassium 4.3 (3.3-5.3) mmol/L Chloride 107 (98-115) mmol/L Carbon Dioxide 27.0 (21.0-32.0) mmol/L BUN 15 (6-25) mg/dL Creatinine 0.55 (0.51-1.17) mg/dL Est Cr Clr Drug Dosing 97.66 mL/min Estimated GFR (MDRD) > 60 mL/min Glucose 97 (70-110) mg/dL Calcium 8.5 L (8.7-10.3) mg/dL Total Bilirubin 0.1 L (0.2-1.0) mg/dL AST 22 (15-37) U/L ALT 39 (12-78) U/L Alkaline Phosphatase 75 (46-116) IU/L Total Protein 7.0 (6.4-8.2) g/dL Albumin 3.22 (3.00-4.80) g/dL Lipase 294 (73-393) U/L HCG, Quant 4 mIU/mL Meds: Medications Discontinued Medications Generic Name Dose Route Start Last Admin Trade Name Freq PRN Reason Stop Dose Admin Hydromorphone HCl 0.5 mg 06/21/17 11:04 06/21/17 11:09 Dilaudid IVPUSH 06/21/17 11:05 0.5 mg ONETIME ONE Administration Ondansetron HCl Confirm 06/21/17 10:47 06/21/17 11:08 Zofran Administered 06/21/17 10:48 Not Given Dose 4 mg .ROUTE .STK-MED ONE Ondansetron HCl 4 mg 06/21/17 10:49 06/21/17 10:50 Zofran IVPUSH 06/21/17 10:50 4 mg ONETIME ONE Administration - Radiology Interpretation Free Text/Narrative:: Abdominal plain film shows no acute process. Departure - Departure Time of Disposition: 12:24 Disposition: Home, Self-Care 01 Condition: Good Clinical Impression: Abdominal pain despite therapy for Crohn's disease Crohns disease Qualifiers: Gastrointestinal tract location: unspecified location Digestive disease complication type: without complication Qualified Code(s): K50.90 - Crohn's disease, unspecified, without complications - Discharge Information Instructions: Abdominal Pain, Adult, [id number], Nausea and Vomiting, Adult, Vtql-[id number], Pain Medicine Instructions, Gitm-[id number], Crohn Disease Referrals: Magda Tong PA-C [Primary Care Provider] - Additional Instructions: Follow-up at [facility] in next 2-3 days. Return to emergency department sooner if symptoms continue or worsen. - My Orders Last 24 Hours: My Active Orders 06/21/17 11:32 DRUG SCREEN, URINE [URCHEM] Stat URINALYSIS W/MICROSCOPIC [UA W/MICROSCOPIC] [URIN] Stat 06/21/17 11:34 Abdomen Comp [US] Stat 06/21/17 11:37 Abdomen 2V AP Upright Decub [CR] Stat - Assessment/Plan Last 24 Hours: My Active Orders 06/21/17 11:32 DRUG SCREEN, URINE [URCHEM] Stat URINALYSIS W/MICROSCOPIC [UA W/MICROSCOPIC] [URIN] Stat 06/21/17 11:34 Abdomen Comp [US] Stat 06/21/17 11:37 Abdomen 2V AP Upright Decub [CR] Stat Assessment:: Abdominal pain, history of Crohn's. Plan: Follow-up with PCP in 2-3 days
[2017-06-21] MEDS: Metoclopramide 10 MG/2 ML SDV IVPUSH ONE (12:16)
== END 2017-06-21 12:42 | disposition home or self-care (01) ==
LOC: KA.ED 10:32
DX: K50.90 Crohn's disease, unspecified, without complications (principal); F32.9 Major depressive disorder, single episode, unspecified; F17.210 Nicotine dependence, cigarettes, uncomplicated; Z88.5 Allergy status to narcotic agent; Z88.8 Allergy status to other drugs, medicaments and biological substances; Z79.899 Other long term (current) drug therapy
CPT/HCPCS: 74021; 80053; 80305; 81001; 83690; 84702; 85025; 96361; 96374; 96375; 99284; J1170; J2405; J2765; J7030

== ENCOUNTER 2017-07-25 18:38 | Emergency (ER) | payer MEDICAID ==
[2017-07-25] MEDS ORDERED: Iopamidol 612 MG/ML 75 ML Bottle IV PRN (19:01)
[2017-07-25] MEDS ORDERED: Sodium Chloride 0.9% 50 ML IV SCH (19:15)
[2017-07-25] MEDS: Metoclopramide 10 MG/2 ML SDV IVPUSH ONE (19:15)
--- NOTE | 2017-07-25 19:22 | EDM.PDOC ---
ED HPI GENERAL MEDICAL PROBLEM - General Chief Complaint: Abdominal Pain Stated Complaint: ABDOMINAL PAIN Time Seen by Provider: 07/25/17 19:00 Source of Information: Reports: Patient History Limitations: Reports: No Limitations - History of Present Illness INITIAL COMMENTS - FREE TEXT/NARRATIVE: 42 YO WF with PMH of Chrohn' s colitis presents to ER complaining of generalized abdominal pain which began 2 days ago. Pt reports she has been vomiting x 2 days with decreased stool. Pt reports 1 hard Bm in the last 2 days. Pt reports fever/chills at home. Pt was able to hold down Tylenol earlier today. Pt had colonoscopy 03/2017 with biopsy which revealed evidence of IBD. Pt reports taking zofran at home but continues to vomit. Pt has had 3 CT abd/ pelvis scans in the last 4 months all showing thickening of distal small bowel. Onset Date: 07/23/17 Duration: Day(s): (2) Location: Reports: Abdomen Quality: Reports: Ache Severity: Moderate Improves with: Reports: None Worsens with: Reports: None Associated Symptoms: Reports: Fever/Chills, Nausea/Vomiting. Denies: Diaphoresis, Rash, Shortness of Breath, Syncope, Weakness Treatments [employer]: Reports: Acetaminophen Abdominal Pain Score (Numeric/FACES): 10 - Related Data Allergies Allergy/AdvReac Type Severity Reaction Status Date / Time metronidazole [From Flagyl] Allergy Nausea and Verified 07/25/17 19:42 Vomiting morphine Allergy Headache Verified 07/25/17 19:42 Home Meds: Home Meds Prednisone [IJD: predniSONE] 15 mg PO DAILY 01/13/17 [History] Promethazine [Phenergan] 25 mg PO Q4H PRN 01/13/17 [History] Dicyclomine [Bentyl] 20 mg PO BID PRN 03/18/17 [History] Acetaminophen 650 mg PO Q4H PRN 07/25/17 [History] Ciprofloxacin HCl [Cipro] 500 mg PO BID #20 tablet 07/25/17 [Rx] Omeprazole 20 mg PO DAILY 07/25/17 [History] Ondansetron [Ondansetron ODT] 4 mg PO Q4H PRN 07/25/17 [History] Simethicone [Gas-X] 125 mg PO BID 07/25/17 [History] azaTHIOprine [Imuran] 50 mg PO DAILY 07/25/17 [History] clonazePAM [Klonopin] 1 mg PO BEDTIME PRN 07/25/17 [History] metroNIDAZOLE [Flagyl] 500 mg PO Q6H #40 tab 07/25/17 [Rx] Past Medical History Gastrointestinal History: Reports: Diverticulosis, Irritable Bowel Syndrome, Other (See Below) Other Gastrointestinal History: Crohns diagnosed in 2016 by 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 finisher in [place], [place] Genitourinary History: Reports: None 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: Psychiatric History: Reports: Anxiety, Depression, Panic Attack Dermatologic History: Reports: Eczema - Infectious Disease History Infectious Disease History: Reports: Chicken Pox - Past Surgical History GI Surgical History: Reports: Colonoscopy, EGD Female Surgical History: Reports: Tubal Ligation Dermatological Surgical History: Reports: None Social & Family History - Caffeine Use Caffeine Use: Reports: Coffee, Soda Other Caffeine Use: regular Caffeine Use Comment: did not ask ED ROS GENERAL - Review of Systems Review Of Systems: See Below Constitutional: Reports: Fever, Chills HEENT: Reports: No Symptoms Respiratory: Reports: No Symptoms Cardiovascular: Reports: No Symptoms Endocrine: Reports: No Symptoms GI/Abdominal: Reports: Abdominal Pain, Constipation, Nausea, Vomiting. Denies: Black Stool, Bloody Stool, Hematemesis, Hematochezia : Reports: No Symptoms Musculoskeletal: Reports: No Symptoms Skin: Reports: No Symptoms Neurological: Reports: No Symptoms Psychiatric: Reports: No Symptoms Hematologic/Lymphatic: Reports: No Symptoms Immunologic: Reports: No Symptoms ED EXAM, GI/ABD - Physical Exam Exam: See Below Exam Limited By: No Limitations General Appearance: Alert, WD/WN, No Apparent Distress Head: Atraumatic, Normocephalic Neck: Normal Inspection, Supple, Non-Tender, Full Range of Motion Respiratory/Chest: No Respiratory Distress, Lungs Clear, Normal Breath Sounds, No Accessory Muscle Use, Chest Non-Tender Cardiovascular: Normal Peripheral Pulses, Regular Rate, Rhythm, No Edema, No Gallop, No JVD, No Murmur, No Rub GI/Abdominal Exam: Normal Bowel Sounds, Soft, No Organomegaly, No Distention, No Abnormal Bruit, No Mass, Pelvis Stable, Tender (generalized). No: Distended , Guarding, Rigid, Rebound Back Exam: Normal Inspection Extremities: Normal Inspection, Normal Range of Motion, Non-Tender, Normal Capillary Refill, No Pedal Edema Neurological: Alert, Oriented, CN II-XII Intact, Normal Cognition, Normal Gait, Normal Reflexes, No Motor/Sensory Deficits Psychiatric: Normal Affect, Normal Mood Skin Exam: Warm, Dry, Intact, Normal Color, No Rash Lymphatic: No Adenopathy Course - Vital Signs Last Recorded V/S: Last Vital Signs Temp 37.0 C 07/25/17 20:05 Pulse 93 07/25/17 20:05 Resp 18 07/25/17 20:05 BP 128/81 07/25/17 20:05 Pulse Ox 95 07/25/17 20:05 - Orders/Labs/Meds Orders: Active Orders 24 hr Category Date Time Status Abdomen Pelvis w Cont [CT] Stat Exams 07/25/17 18:57 Stop Req UA W/MICROSCOPIC [URIN] Stat Lab 07/25/17 18:56 Ordered Ciprofloxacin [Ciprofloxacin HCl] Med 07/25/17 21:00 Ordered 500 mg PO BID Iopamidol [Isovue-300 (61%)] Med 07/25/17 19:01 Active 75 ml IV . DIRECTED PRN Metoclopramide [Reglan] Med 07/25/17 20:23 Ordered 10 mg PO Q8H PRN Sodium Chloride 0.9% [Normal Saline] 50 ml Med 07/25/17 19:15 Active IV ASDIRECTED metroNIDAZOLE [Flagyl] Med 07/25/17 20:30 Ordered 500 mg PO Q8H traMADol [Ultram] Med 07/25/17 20:23 Ordered 50 mg PO Q6H PRN Medication Orders Sodium Chloride (Normal Saline) 50 mls @ 3 mls/sec IV ASDIRECTED STEVEN Iopamidol (Isovue-300 (61%)) 75 ml IV . DIRECTED PRN PRN Reason: FOR RADIOLOGY EXAM Labs: Laboratory Tests 07/25/17 07/25/17 07/25/17 Range/Units 19:05 19:05 19:05 WBC 16.1 H (5.0-10.0) 10^3/uL RBC 5.07 (3.80-5.50) 10^6/uL Hgb 15.3 (12.0-16.0) g/dL Hct 44.2 (37.0-47.0) % MCV 87.1 (82.0-92.0) fL MCH 30.3 (27.0-31.0) pg MCHC 34.7 (32.0-36.0) g/dL RDW 13.9 (11.5-14.5) % Plt Count 266 (150-300) 10^3/uL MPV 7.2 L (7.4-10.4) fL Neut % (Auto) 80.4 H (50.0-70.0) % Lymph % (Auto) 14.2 L (20.0-40.0) % [place] % (Auto) 4.9 (2.0-8.0) % Eos % (Auto) 0.5 L (1.0-3.0) % Baso % (Auto) 0.0 (0.0-1.0) % Neut # (Auto) 12.9 H (2.5-7.0) 10^3/uL Lymph # (Auto) 2.3 (1.0-4.0) 10^3/uL [place] # (Auto) 0.8 (0.1-0.8) 10^3/uL Eos # (Auto) 0.1 (0.1-0.3) 10^3/uL Baso # (Auto) 0.0 (0.0-0.1) 10^3/uL Sodium 139 (136-145) mmol/L Potassium 4.1 (3.3-5.3) mmol/L Chloride 100 (98-115) mmol/L Carbon Dioxide 29.6 (21.0-32.0) mmol/L BUN 10 (6-25) mg/dL Creatinine 0.55 (0.51-1.17) mg/dL Est Cr Clr Drug Dosing 97.66 mL/min Estimated GFR (MDRD) > 60 mL/min Glucose 113 H (70-110) mg/dL Calcium 8.9 (8.7-10.3) mg/dL Total Bilirubin 0.2 (0.2-1.0) mg/dL AST 18 (15-37) U/L ALT 24 (12-78) U/L Alkaline Phosphatase 88 (46-116) IU/L Total Protein 7.2 (6.4-8.2) g/dL Albumin 3.22 (3.00-4.80) g/dL Lipase 142 (73-393) U/L HCG, Qual Negative (NEGATIVE) Meds: Medications Generic Name Dose Route Start Last Admin Trade Name Freq PRN Reason Stop Dose Admin Sodium Chloride 50 mls @ 3 mls/sec 07/25/17 19:15 Normal Saline IV ASDIRECTED STEVEN Iopamidol 75 ml 07/25/17 19:01 Isovue-300 (61%) IV . DIRECTED PRN FOR RADIOLOGY EXAM Discontinued Medications Generic Name Dose Route Start Last Admin Trade Name Freq PRN Reason Stop Dose Admin Sodium Chloride 1,000 mls @ 999 mls/hr 07/25/17 18:59 07/25/17 19:30 Normal Saline IV 07/25/17 19:59 999 mls/hr .BOLUS ONE Administration Metoclopramide HCl 10 mg 07/25/17 19:00 07/25/17 19:15 Reglan IVPUSH 07/25/17 19:01 10 mg ONETIME ONE Administration - Re-Assessments/Exams Free Text/Narrative Re-Assessment/Exam: 07/25/17 20:02 discussed with patient concern for repeat CT abd/pelvis due to radiation exposure and consistency of pain and CT exams. I recommended admission to hospital and urged patient to consider due to elevated WBC's, intolerance to PO flagyl and intractable vomiting. Pt is refusing to stay. Discussed case with Madeline JENSEN with [facility] who understands my concerns and suggested PO antibiotics, pain medications and antiemetics with follow up in clinic tomorrow. Pt will sign out of ER against medical advice. 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 07/25/17 20:07 Pt was asleep in ER when i entered room to discuss disposition- she awoke and appears in NAD Departure - Departure Time of Disposition: 20:25 Disposition: Against Medical Advice 07 Condition: Fair Clinical Impression: Colitis Abdominal pain Qualifiers: Abdominal location: lower abdomen, unspecified Qualified Code(s): R10.30 - Lower abdominal pain, unspecified Exacerbation of Crohn's disease Qualifiers: Digestive disease complication type: with abscess Qualified Code(s): K50.914 - Crohn's disease, unspecified, with abscess - Discharge Information Prescriptions: Ciprofloxacin HCl [Cipro] 500 mg PO BID #20 tablet metroNIDAZOLE [Flagyl] 500 mg PO Q6H #40 tab Instructions: Abdominal Pain, Adult, Constipation, Adult, [id number], Crohn Disease Referrals: Vilma Walden MD [Primary Care Provider] - Forms: ED Department Discharge, Refusal of Care AMA Additional Instructions: 1. AMA- discharge home 2. Flagyl 500mg PO Q6 3. Cipro 500mg PO BID 4. Ultram 50mg PO Q6 PRN 5. Reglan 10mg PO Q8 PRN 6. follow up in clinic tomorrow for further evaluation and treatment 7. return to ER for worsening symptoms - My Orders Last 24 Hours: My Active Orders 07/25/17 18:56 UA W/MICROSCOPIC [URIN] Stat 07/25/17 18:57 Abdomen Pelvis w Cont [CT] Stat 07/25/17 19:01 Iopamidol [Isovue-300 (61%)] 75 ml IV . DIRECTED PRN 07/25/17 19:15 Sodium Chloride 0.9% [Normal Saline] 50 ml IV ASDIRECTED 07/25/17 20:23 Metoclopramide [Reglan] 10 mg PO Q8H PRN traMADol [Ultram] 50 mg PO Q6H PRN 07/25/17 20:30 metroNIDAZOLE [Flagyl] 500 mg PO Q8H 07/25/17 21:00 Ciprofloxacin [Ciprofloxacin HCl] 500 mg PO BID - Assessment/Plan Last 24 Hours: My Active Orders 07/25/17 18:56 UA W/MICROSCOPIC [URIN] Stat 07/25/17 18:57 Abdomen Pelvis w Cont [CT] Stat 07/25/17 19:01 Iopamidol [Isovue-300 (61%)] 75 ml IV . DIRECTED PRN 07/25/17 19:15 Sodium Chloride 0.9% [Normal Saline] 50 ml IV ASDIRECTED 07/25/17 20:23 Metoclopramide [Reglan] 10 mg PO Q8H PRN traMADol [Ultram] 50 mg PO Q6H PRN 07/25/17 20:30 metroNIDAZOLE [Flagyl] 500 mg PO Q8H 07/25/17 21:00 Ciprofloxacin [Ciprofloxacin HCl] 500 mg PO BID Assessment:: 1. Abdominal pain consistent with Colitis 2. vomiting- currently resolved Plan: 1. AMA- discharge home 2. Flagyl 500mg PO Q6 3. Cipro 500mg PO BID 4. Ultram 50mg PO Q6 PRN 5. Reglan 10mg PO Q8 PRN 6. follow up in clinic tomorrow for further evaluation and treatment 7. return to ER for worsening symptoms
[2017-07-25] MEDS: Sodium Chloride 0.9% 1,000 ML IV ONE (19:30)
[2017-07-25 19:41] LABS: CHLORIDE,CL 100 mmol/L (98-115); SODIUM,NA 139 mmol/L (136-145)
[2017-07-25] MEDS: metroNIDAZOLE 500 MG Tab PO SCH (20:45)
[2017-07-25] MEDS: traMADol 50 MG Tab PO PRN (20:45)
[2017-07-25] MEDS: Metoclopramide 10 MG Tab PO PRN (20:45)
[2017-07-25] MEDS: Ciprofloxacin 500 MG Tab PO SCH (20:45)
== END 2017-07-25 20:45 | disposition left against medical advice (07) ==
LOC: KA.ED 18:38
DX: K52.9 Noninfective gastroenteritis and colitis, unspecified (principal); K50.914 Crohn's disease, unspecified, with abscess; F41.9 Anxiety disorder, unspecified; F32.9 Major depressive disorder, single episode, unspecified; Z79.899 Other long term (current) drug therapy; Z88.5 Allergy status to narcotic agent; Z88.8 Allergy status to other drugs, medicaments and biological substances
CPT/HCPCS: 36415; 80053; 83690; 84703; 85025; 96361; 96374; 99284; A9270-GY; J2765; J7030

== ENCOUNTER 2018-05-13 12:59 | Emergency (ER) | payer MEDICAID, OTHER ==
[2018-05-13 13:58] LABS: ANION GAP 14.6 mmol/L (5-15); CHLORIDE,CL 100 mmol/L (98-115); SODIUM,NA 139 mmol/L (136-145)
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
== END 2018-05-13 14:50 | disposition home or self-care (01) ==
LOC: KA.ED 12:59
DX: K50.90 Crohn's disease, unspecified, without complications (principal); F17.210 Nicotine dependence, cigarettes, uncomplicated; Z88.8 Allergy status to other drugs, medicaments and biological substances; Z88.5 Allergy status to narcotic agent; Z79.899 Other long term (current) drug therapy
CPT/HCPCS: 36415; 80053; 83690; 85025; 86140; 99284

== ENCOUNTER 2018-08-14 08:00 | Emergency (ER) | payer MEDICAID ==
[2018-08-14] MEDS: Sodium Chloride 0.9% 10 ML Syringe FLUSH PRN (08:15)
[2018-08-14 08:31] VITALS: BP 113/64
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
[2018-08-14 08:56] LABS: ANION GAP 16.3 mmol/L (5-15); CHLORIDE,CL 101 mmol/L (98-115); SODIUM,NA 138 mmol/L (136-145)
[2018-08-14] MEDS: Lidocaine 1% 20 ML MDV ONE (09:00)
[2018-08-14] MEDS: Lidocaine 1% 20 ML MDV INJECT ONE (09:00)
== END 2018-08-14 09:25 | disposition home or self-care (01) ==
LOC: KA.ED 08:00
DX: K64.5 Perianal venous thrombosis (principal); F41.9 Anxiety disorder, unspecified; F32.9 Major depressive disorder, single episode, unspecified; Z88.8 Allergy status to other drugs, medicaments and biological substances; Z88.5 Allergy status to narcotic agent; Z79.899 Other long term (current) drug therapy
CPT/HCPCS: 36415; 46083; 80053; 83605; 85025; 86140; 87040; 99283-25; J2001

== ENCOUNTER 2019-01-20 13:35 | Emergency (ER) | payer MEDICAID ==
[2019-01-20] MEDS ORDERED: Sodium Chloride 0.9% 10 ML Syringe FLUSH PRN (14:13)
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
[2019-01-20] MEDS: Sodium Chloride 0.9% 1,000 ML IV ONE (14:41)
[2019-01-20] MEDS: HYDROmorphone 1 MG/ML Syringe IVPUSH ONE (14:42)
[2019-01-20] MEDS: Ondansetron 4 MG/2 ML SDV IVPUSH ONE (14:42)
[2019-01-20 14:59] LABS: ANION GAP 15.9 mmol/L (5-15); CHLORIDE,CL 102 mmol/L (98-115); SODIUM,NA 139 mmol/L (136-145)
== END 2019-01-20 16:03 | disposition home or self-care (01) ==
LOC: KA.ED 13:35
DX: K50.90 Crohn's disease, unspecified, without complications (principal); F41.0 Panic disorder [episodic paroxysmal anxiety]; F32.9 Major depressive disorder, single episode, unspecified; E66.9 Obesity, unspecified; Z68.36 Body mass index [BMI] 36.0-36.9, adult; Z88.5 Allergy status to narcotic agent; Z88.8 Allergy status to other drugs, medicaments and biological substances; Z79.899 Other long term (current) drug therapy
CPT/HCPCS: 80053; 83690; 84703; 85025; 86140; 96361; 96374; 96375; 99284; 99284-25; J1170; J2405; J7030

== ENCOUNTER 2019-01-27 09:32 | Emergency (ER) | payer MEDICAID, OTHER ==
[2019-01-27] MEDS ORDERED: Sodium Chloride 0.9% 10 ML Syringe FLUSH PRN (09:45)
[2019-01-27] MEDS ORDERED: Sodium Chloride 0.9% 1,000 ML IV ONE (09:45)
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
[2019-01-27] MEDS ORDERED: HYDROmorphone 1 MG/ML Syringe IVPUSH ONE (10:01)
[2019-01-27] MEDS ORDERED: Ondansetron 4 MG/2 ML SDV IVPUSH ONE (10:03)
[2019-01-27 10:18] LABS: ANION GAP 16.3 mmol/L (5-15); CHLORIDE,CL 102 mmol/L (98-115); SODIUM,NA 139 mmol/L (136-145)
[2019-01-27] MEDS ORDERED: methylPREDNISolone Sodium Succinate 125 MG/2 ML SDV IVPUSH ONE (10:33)
== END 2019-01-27 11:30 | disposition home or self-care (01) ==
LOC: KA.ED 09:32
DX: K50.10 Crohn's disease of large intestine without complications (principal); E66.9 Obesity, unspecified; K21.9 Gastro-esophageal reflux disease without esophagitis; Z88.5 Allergy status to narcotic agent; Z88.1 Allergy status to other antibiotic agents; Z88.6 Allergy status to analgesic agent; Z88.8 Allergy status to other drugs, medicaments and biological substances; Z68.36 Body mass index [BMI] 36.0-36.9, adult; Z79.899 Other long term (current) drug therapy
CPT/HCPCS: 36415; 80053; 83690; 85025; 86140; 96361; 96374; 96375; 99284; J1170; J2405; J2930; J7030

== ENCOUNTER 2019-02-16 16:44 | Emergency (ER) | payer SELFPAY ==
[2019-02-16 18:03] LABS: ANION GAP 15.1 mmol/L (5-15); CHLORIDE,CL 102 mmol/L (98-115); SODIUM,NA 141 mmol/L (136-145)
[2019-02-16] MEDS: Sodium Chloride 0.9% 1,000 ML IV ONE (18:03)
[2019-02-16] MEDS: Ondansetron 4 MG/2 ML SDV IVPUSH ONE (18:03)
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
== END 2019-02-16 19:17 | disposition home or self-care (01) ==
LOC: KA.ED 16:44
DX: E86.0 Dehydration (principal); K50.10 Crohn's disease of large intestine without complications; Z79.899 Other long term (current) drug therapy; Z88.5 Allergy status to narcotic agent; Z88.1 Allergy status to other antibiotic agents; Z88.6 Allergy status to analgesic agent; Z88.8 Allergy status to other drugs, medicaments and biological substances
CPT/HCPCS: 80048; 85025; 96361; 96374; 99284; J2405; J7030

== ENCOUNTER 2019-02-28 17:40 | Emergency (ER) | payer SELFPAY ==
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
[2019-02-28] MEDS: Lidocaine 1% 20 ML MDV INJECT ONE (18:25)
== END 2019-02-28 19:00 | disposition home or self-care (01) ==
LOC: KA.ED 17:40
DX: L72.3 Sebaceous cyst (principal); F17.210 Nicotine dependence, cigarettes, uncomplicated; Z88.5 Allergy status to narcotic agent; Z88.8 Allergy status to other drugs, medicaments and biological substances; Z88.1 Allergy status to other antibiotic agents; Z79.899 Other long term (current) drug therapy
CPT/HCPCS: 10060; 99283-25; J2001

== ENCOUNTER 2019-04-18 09:09 | Emergency (ER) | payer MEDICAID, OTHER ==
[2019-04-18] MEDS ORDERED: LORazepam 0.5 MG Tab PO ONE (09:13)
[2019-04-18] MEDS ORDERED: LORazepam 0.5 MG Tab ONE (09:16)
[2019-04-18] MEDS ORDERED: Sodium Chloride 0.9% 1,000 ML ONE (09:43)
[2019-04-18] MEDS ORDERED: LORazepam 2 MG/ML SDV ONE (09:43)
[2019-04-18] MEDS ORDERED: LORazepam 2 MG/ML SDV IVPUSH ONE (09:50)
[2019-04-18] MEDS ORDERED: Sodium Chloride 0.9% 1,000 ML IV ONE (09:50)
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
[2019-04-18 10:41] LABS: ANION GAP 18.8 mmol/L (5-15); CHLORIDE,CL 101 mmol/L (98-115); SODIUM,NA 140 mmol/L (136-145)
[2019-04-18 10:44] LABS: BARBITURATE SCREEN,URINE NEGATIVE (NEGATIVE); BENZODIAZEPINES SCREEN,URINE NEGATIVE (NEGATIVE)
[2019-04-18 10:45] LABS: TCA SCREEN,URINE POSITIVE (NEGATIVE); THC SCREEN,URINE 50 NG/ML POSITIVE (NEGATIVE)
== END 2019-04-18 11:35 | disposition home or self-care (01) ==
LOC: KA.ED 09:09
DX: F41.0 Panic disorder [episodic paroxysmal anxiety] (principal); F32.9 Major depressive disorder, single episode, unspecified; F17.210 Nicotine dependence, cigarettes, uncomplicated; Z88.6 Allergy status to analgesic agent; Z88.5 Allergy status to narcotic agent; Z88.1 Allergy status to other antibiotic agents; Z88.8 Allergy status to other drugs, medicaments and biological substances; Z68.38 Body mass index [BMI] 38.0-38.9, adult
CPT/HCPCS: 36415; 80053; 80305; 85025; 96361; 96374; 99283; 99284; A9270; J2060; J7030

== ENCOUNTER 2019-04-20 09:54 | Emergency (ER) | payer MEDICAID ==
[2019-04-20] MEDS ORDERED: LORazepam 2 MG/ML SDV IVPUSH ONE ×2 (10:10→10:47)
[2019-04-20 10:37] LABS: BARBITURATE SCREEN,URINE NEGATIVE (NEGATIVE); BENZODIAZEPINES SCREEN,URINE POSITIVE (NEGATIVE)
[2019-04-20 10:38] LABS: TCA SCREEN,URINE POSITIVE (NEGATIVE); THC SCREEN,URINE 50 NG/ML POSITIVE (NEGATIVE)
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
== END 2019-04-20 11:15 | disposition home or self-care (01) ==
LOC: KA.ED 09:54
DX: F32.9 Major depressive disorder, single episode, unspecified (principal); F41.9 Anxiety disorder, unspecified; E66.9 Obesity, unspecified; Z68.37 Body mass index [BMI] 37.0-37.9, adult; Z88.8 Allergy status to other drugs, medicaments and biological substances; Z88.1 Allergy status to other antibiotic agents; Z88.5 Allergy status to narcotic agent; Z79.899 Other long term (current) drug therapy
CPT/HCPCS: 80305; 96374; 99284; J2060

== ENCOUNTER 2019-12-06 16:32 | Emergency (ER) | payer OTHER, MEDICAID ==
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
--- NOTE | 2019-12-06 17:38 | CR ---
[id number] RAD/RAD Forearm Left 2V Exam: RAD Forearm Left 2V Indication:FALL, PAIN. Comparison: No prior imaging for comparison. Discussion/Impression: Radius and ulna are intact. Piero Leiva MD 12/06/19 1737 Thank you for allowing us to participate in the care of your patient.
--- NOTE | 2019-12-06 17:38 | CR ---
[id number] RAD/RAD Elbow Left 3V Min Exam: RAD Elbow Left 3V Min Indication:FALL. Comparison: No prior imaging for comparison. Discussion/Impression: Elbow joint effusion. Bones are in normal alignment. No visible fracture. Joint effusion can be seen with radiographically occult supracondylar humerus fracture. Piero Leiva MD 12/06/19 9938 Thank you for allowing us to participate in the care of your patient.
--- NOTE | 2019-12-06 17:39 | CR ---
[id number] RAD/RAD Shoulder Left 2V Min Exam: RAD Shoulder Left 2V Min Indication:FALL, PAIN. Comparison: No prior imaging for comparison. Discussion/Impression: Acromioclavicular and glenohumeral articulations in normal alignment. Calcific tendinitis versus rotator cuff avulsion injury at its footprint on the humeral head seen on internal rotation view. Piero Leiva MD 12/06/19 9945 Thank you for allowing us to participate in the care of your patient.
== END 2019-12-06 18:40 | disposition home or self-care (01) ==
LOC: KA.ED 16:32
DX: M25.422 Effusion, left elbow (principal); F41.9 Anxiety disorder, unspecified; F32.9 Major depressive disorder, single episode, unspecified; E66.9 Obesity, unspecified; Z68.32 Body mass index [BMI] 32.0-32.9, adult; Z88.6 Allergy status to analgesic agent; Z88.5 Allergy status to narcotic agent; Z88.1 Allergy status to other antibiotic agents; Z88.8 Allergy status to other drugs, medicaments and biological substances; Z79.899 Other long term (current) drug therapy; Z89.411 Acquired absence of right great toe
CPT/HCPCS: 73030-LT; 73080-LT; 73090-LT; 99283-25; 99284

== ENCOUNTER 2020-06-04 10:17 | Emergency (ER) | payer MEDICAID ==
[2020-06-04] MEDS ORDERED: Iopamidol 755 Mg/ML 75 ML Bottle IVPUSH ONE (11:16)
[2020-06-04 11:18] LABS: ANION GAP 14.2 mmol/L (5-15); CHLORIDE,CL 103 mmol/L (98-107); SODIUM,NA 140 mmol/L (136-145)
[2020-06-04] MEDS ORDERED: HYDROmorphone 1 MG/ML Syringe IVPUSH ONE (11:21)
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
[2020-06-04] MEDS ORDERED: Sodium Chloride 0.9% 50 ML IV SCH (11:30)
--- NOTE | 2020-06-04 11:30 | CT ---
[id number] CT/CT Abdomen Pelvis W IV EXAM: CT Abdomen Pelvis W IV CLINICAL DATA: ABDOMINAL PAIN COMPARISON: CORRELATION IS MADE WITH THE CAT SCAN OF APRIL 20, 2017 FINDINGS: Surgical changes are seen involving the sigmoid colon There is no evidence of diverticulitis The pelvis shows no mass or adenopathy Surgical changes are seen in the region of the appendix The liver and spleen, kidneys and adrenals, pancreas and aorta are unremarkable The gallbladder is not distended There are atheromatous calcifications IMPRESSION: NO ACUTE PROCESS. Yan Maya MD 06/04/20 [id number] Thank you for allowing us to participate in the care of your patient.
[2020-06-04] MEDS ORDERED: Sodium Chloride 0.9% 1,000 ML IV ONE (12:08)
== END 2020-06-04 13:45 ==
LOC: KA.ED 10:17
DX: R10.84 Generalized abdominal pain (principal); R11.2 Nausea with vomiting, unspecified; Z88.5 Allergy status to narcotic agent; Z88.8 Allergy status to other drugs, medicaments and biological substances; Z79.899 Other long term (current) drug therapy; E66.9 Obesity, unspecified; Z87.891 Personal history of nicotine dependence; Z68.36 Body mass index [BMI] 36.0-36.9, adult
CPT/HCPCS: 36415; 74177; 80048; 82040; 82247; 82248; 84075; 84155; 84450; 84460; 85025; 86140; 96374; 99285; J1170; J7030; Q9967; 99284

== ENCOUNTER 2020-10-06 12:20 | Emergency (ER) | payer MEDICAID ==
[2020-10-06] MEDS ORDERED: Sodium Chloride 0.9% 10 ML Syringe FLUSH PRN (12:31)
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
--- NOTE | 2020-10-06 12:53 | CR ---
[id number] RAD/RAD Chest PA And Lateral EXAM: RAD Chest PA And Lateral INDICATION: SHORTNESS OF BREATH. COMPARISON: October 05, 2020. DISCUSSION: Cardiomediastinal silhouette is normal in size and contour. No infiltrate, effusion, pneumothorax, or edema. Pulmonary hyperinflation. IMPRESSION: No acute cardiopulmonary abnormality. Olegario Vines DO 10/06/20 2532 Thank you for allowing us to participate in the care of your patient.
[2020-10-06 14:33] LABS: ANION GAP 9.2 mmol/L (5-15); CHLORIDE,CL 103 mmol/L (98-107); SODIUM,NA 138 mmol/L (136-145)
== END 2020-10-06 16:20 | disposition home or self-care (01) ==
LOC: KA.ED 12:20
DX: U07.1 COVID-19 (principal); F17.210 Nicotine dependence, cigarettes, uncomplicated; J44.9 Chronic obstructive pulmonary disease, unspecified; Z20.822 Contact with and (suspected) exposure to COVID-19; Z79.899 Other long term (current) drug therapy; Z88.5 Allergy status to narcotic agent; Z88.1 Allergy status to other antibiotic agents; Z88.0 Allergy status to penicillin; Z88.6 Allergy status to analgesic agent
CPT/HCPCS: 36415; 71046; 80053; 82375; 83605; 84703; 85025; 85379; 99283-25; 99284; U0002

== ENCOUNTER 2021-04-19 17:18 | Emergency (ER) | payer MEDICAID ==
[2021-04-19] MEDS: Sodium Chloride 0.9% 1,000 ML IV ONE (17:56)
[2021-04-19] MEDS: Ondansetron 4 MG/2 ML SDV IVPUSH ONE (18:01)
[2021-04-19] MEDS: HYDROmorphone 1 MG/ML Syringe IVPUSH ONE (18:02)
[2021-04-19] MEDS: Sodium Chloride 0.9% 10 ML Syringe FLUSH PRN (18:03)
[2021-04-19 18:23] LABS: ANION GAP 14.1 mmol/L (5-15); CHLORIDE,CL 100 mmol/L (98-107); SODIUM,NA 137 mmol/L (136-145)
[2021-04-19] MEDS: methylPREDNISolone Sodium Succinate 125 MG/2 ML SDV IVPUSH ONE (18:23)
== END 2021-04-19 19:35 | disposition home or self-care (01) ==
LOC: KA.ED 17:18
DX: K50.10 Crohn's disease of large intestine without complications (principal); F17.210 Nicotine dependence, cigarettes, uncomplicated; E66.9 Obesity, unspecified; Z68.41 Body mass index [BMI] 40.0-44.9, adult; Z88.0 Allergy status to penicillin; Z88.5 Allergy status to narcotic agent; Z88.6 Allergy status to analgesic agent; Z88.8 Allergy status to other drugs, medicaments and biological substances; Z79.899 Other long term (current) drug therapy
CPT/HCPCS: 36415; 80053; 82150; 83690; 85025; 86140; 96374; 96375; 99284; 99284-25; J1170; J2405; J2930; J7030

== ENCOUNTER 2021-04-28 11:29 | Emergency (ER) | payer MEDICAID ==
[2021-04-28] MEDS ORDERED: Sodium Chloride 0.9% 10 ML Syringe FLUSH PRN (11:33)
[2021-04-28] MEDS ORDERED: Ondansetron 4 MG/2 ML SDV IVPUSH ONE (11:56)
[2021-04-28] MEDS ORDERED: HYDROmorphone 1 MG/ML Syringe IVPUSH ONE ×2 (11:56→13:04)
[2021-04-28] MEDS ORDERED: Sodium Chloride 0.9% 1,000 ML IV ONE (11:56)
[2021-04-28 12:06] LABS: ANION GAP 9.6 mmol/L (5-15); CHLORIDE,CL 98 mmol/L (98-107); SODIUM,NA 137 mmol/L (136-145)
[2021-04-28] MEDS: Ketorolac 30 MG/ML SDV IVPUSH ONE ×2 (13:00→13:03)
[2021-04-28] MEDS ORDERED: methylPREDNISolone Sodium Succinate 125 MG/2 ML SDV IVPUSH ONE (13:25)
== END 2021-04-28 13:48 | disposition home or self-care (01) ==
LOC: KA.ED 11:29
DX: K50.90 Crohn's disease, unspecified, without complications (principal); J44.9 Chronic obstructive pulmonary disease, unspecified; E66.9 Obesity, unspecified; Z68.41 Body mass index [BMI] 40.0-44.9, adult; Z88.0 Allergy status to penicillin; Z88.5 Allergy status to narcotic agent; Z88.1 Allergy status to other antibiotic agents; Z88.6 Allergy status to analgesic agent; Z88.8 Allergy status to other drugs, medicaments and biological substances; Z79.899 Other long term (current) drug therapy
CPT/HCPCS: 36415; 80053; 83690; 85025; 86140; 96374; 96375; 96376; 99283; 99284-25; J1170; J1885; J2405; J2930; J7030

== ENCOUNTER 2021-04-29 17:23 | Emergency (ER) | payer MEDICAID ==
[2021-04-29] MEDS ORDERED: LORazepam 2 MG/ML SDV IVPUSH ONE (18:19)
[2021-04-29] MEDS ORDERED: LORazepam 2 MG/ML SDV ONE (18:20)
[2021-04-29] MEDS ORDERED: LORazepam 2 MG/ML SDV IM ONE (18:38)
== END 2021-04-29 18:30 | disposition home or self-care (01) ==
LOC: KA.ED 17:23
DX: F41.0 Panic disorder [episodic paroxysmal anxiety] (principal); J44.9 Chronic obstructive pulmonary disease, unspecified; E66.9 Obesity, unspecified; Z68.30 Body mass index [BMI] 30.0-30.9, adult; Z88.0 Allergy status to penicillin; Z88.5 Allergy status to narcotic agent; Z88.1 Allergy status to other antibiotic agents; Z88.8 Allergy status to other drugs, medicaments and biological substances; Z79.899 Other long term (current) drug therapy
CPT/HCPCS: 96372; 99283; 99284; J2060

== ENCOUNTER 2021-05-06 11:06 | Emergency (ER) | payer MEDICAID | END 2021-05-06 11:45 | disposition home or self-care (01) | LOC: KA.ED 11:06 | DX: K50.90 Crohn's disease, unspecified, without complications (principal); J44.9 Chronic obstructive pulmonary disease, unspecified; E66.9 Obesity, unspecified; Z68.41 Body mass index [BMI] 40.0-44.9, adult; Z88.0 Allergy status to penicillin; Z88.5 Allergy status to narcotic agent; Z88.1 Allergy status to other antibiotic agents; Z88.6 Allergy status to analgesic agent; Z72.0 Tobacco use; Z88.8 Allergy status to other drugs, medicaments and biological substances | CPT/HCPCS: 99283; 99284 ==

== ENCOUNTER 2021-08-12 16:16 | Emergency (ER) | payer MEDICAID, OTHER ==
[2021-08-12 16:53] LABS: ANION GAP 6.7 mmol/L (5-15); CHLORIDE,CL 103 mmol/L (98-107); SODIUM,NA 138 mmol/L (136-145)
[2021-08-12 16:54] LABS: ESTIMATED GFR > 60 mL/min
[2021-08-12] MEDS: Aspirin 81 MG Tab.Chew PO ONE (16:56)
== END 2021-08-12 18:09 | disposition home or self-care (01) ==
LOC: KA.ED 16:16
DX: K50.90 Crohn's disease, unspecified, without complications (principal); F17.210 Nicotine dependence, cigarettes, uncomplicated; E66.9 Obesity, unspecified; Z68.41 Body mass index [BMI] 40.0-44.9, adult; Z88.5 Allergy status to narcotic agent; Z88.1 Allergy status to other antibiotic agents; Z88.0 Allergy status to penicillin; Z88.8 Allergy status to other drugs, medicaments and biological substances; Z88.6 Allergy status to analgesic agent
CPT/HCPCS: 36415; 71045; 80053; 83880; 84484; 85025; 93005; 93010; 99284; 99285-25; A9270-GY

== ENCOUNTER 2021-08-20 13:23 | Emergency (ER) | payer MEDICAID, OTHER ==
[2021-08-20] MEDS ORDERED: Sodium Chloride 0.9% 10 ML Syringe FLUSH PRN (13:25)
[2021-08-20 14:03] LABS: ANION GAP 9.2 mmol/L (5-15); CHLORIDE,CL 102 mmol/L (98-107); SODIUM,NA 137 mmol/L (136-145)
[2021-08-20] MEDS: Sodium Chloride 0.9% 1,000 ML IV ONE (14:04)
[2021-08-20 14:05] LABS: ESTIMATED GFR > 60 mL/min
[2021-08-20] MEDS: Ketorolac 30 MG/ML SDV IVPUSH ONE (14:51)
[2021-08-20] MEDS: Furosemide 40 MG/4 ML VIAL IVPUSH ONE (14:52)
== END 2021-08-20 15:03 | disposition home or self-care (01) ==
LOC: KA.ED 13:23
DX: S00.83XA Contusion of other part of head, initial encounter (principal); R11.0 Nausea; J44.9 Chronic obstructive pulmonary disease, unspecified; E66.9 Obesity, unspecified; Z68.41 Body mass index [BMI] 40.0-44.9, adult; Z79.899 Other long term (current) drug therapy; Z88.5 Allergy status to narcotic agent; Z88.1 Allergy status to other antibiotic agents; Z88.6 Allergy status to analgesic agent; Z88.8 Allergy status to other drugs, medicaments and biological substances; W01.0XXA Fall on same level from slipping, tripping and stumbling without subsequent striking against object, initial encounter
CPT/HCPCS: 36415; 70450; 71046; 80053; 80307; 83880; 84484; 85025; 86140; 93005; 93010; 96361; 96374; 96375; 99284; 99284-25; J1885; J1940; J7030

== ENCOUNTER 2021-11-02 10:18 | Emergency (ER) | payer MEDICAID ==
[2021-11-02] MEDS ORDERED: Lidocaine 1% with EPINEPHrine 1:100,000 10 ML MDV INJECT ONE (11:27)
== END 2021-11-02 12:25 | disposition home or self-care (01) ==
LOC: KA.ED 10:18
DX: L02.415 Cutaneous abscess of right lower limb (principal); J44.9 Chronic obstructive pulmonary disease, unspecified; E66.9 Obesity, unspecified; Z68.41 Body mass index [BMI] 40.0-44.9, adult; Z88.8 Allergy status to other drugs, medicaments and biological substances; Z88.6 Allergy status to analgesic agent; Z88.1 Allergy status to other antibiotic agents; Z88.5 Allergy status to narcotic agent; Z79.899 Other long term (current) drug therapy
CPT/HCPCS: 10060; 87070; 87075; 87205; 99283

== ENCOUNTER 2021-11-16 10:10 | Emergency (ER) | payer MEDICAID ==
[2021-11-16] MEDS ORDERED: Sodium Chloride 0.9% 10 ML Syringe FLUSH PRN (10:51)
[2021-11-16] MEDS: Ondansetron 4 MG/2 ML SDV IVPUSH ONE (10:54)
[2021-11-16] MEDS: Sodium Chloride 0.9% 1,000 ML IV ONE (10:54)
[2021-11-16] MEDS: Sodium Chloride 0.9% 1,000 ML ONE (10:55)
[2021-11-16] MEDS: Ondansetron 4 MG/2 ML SDV ONE (10:55)
[2021-11-16] MEDS: HYDROmorphone 1 MG/ML Syringe IVPUSH ONE (11:34)
== END 2021-11-16 12:00 | disposition home or self-care (01) ==
LOC: KA.ED 10:10
DX: R10.84 Generalized abdominal pain (principal); G89.29 Other chronic pain; R11.2 Nausea with vomiting, unspecified; J44.9 Chronic obstructive pulmonary disease, unspecified; E66.9 Obesity, unspecified; Z68.41 Body mass index [BMI] 40.0-44.9, adult; Z88.5 Allergy status to narcotic agent; Z88.0 Allergy status to penicillin; Z88.1 Allergy status to other antibiotic agents; Z88.8 Allergy status to other drugs, medicaments and biological substances; Z79.899 Other long term (current) drug therapy
CPT/HCPCS: 36415; 80053; 81001; 83690; 85025; 96361; 96374; 96375; 99284; 99284-25; J1170; J2405; J7030

== ENCOUNTER 2021-11-23 09:20 | Emergency (ER) | payer MEDICAID, OTHER ==
[2021-11-23] MEDS ORDERED: Sodium Chloride 0.9% 10 ML Syringe FLUSH PRN (09:57)
[2021-11-23 10:10] LABS: ANION GAP 7.7 mmol/L (5-15)
[2021-11-23] MEDS: Ondansetron 4 MG/2 ML SDV ONE (10:23)
[2021-11-23] MEDS: Ondansetron 4 MG/2 ML SDV IVPUSH ONE (10:23)
[2021-11-23 10:39] LABS: PTT,PARTIAL THROMBOPLSTIN TIME 25.5 SEC (22.8-31.4)
[2021-11-23] MEDS: Sodium Chloride 0.9% 50 ML IV SCH (10:40)
[2021-11-23] MEDS: Iopamidol 755 Mg/ML 75 ML Bottle IVPUSH ONE (10:40)
[2021-11-23] MEDS: HYDROmorphone 1 MG/ML Syringe IVPUSH ONE (11:15)
== END 2021-11-23 13:00 | disposition home or self-care (01) ==
LOC: KA.ED 09:20
DX: K92.0 Hematemesis (principal); J44.9 Chronic obstructive pulmonary disease, unspecified; E66.9 Obesity, unspecified; Z68.41 Body mass index [BMI] 40.0-44.9, adult; Z88.8 Allergy status to other drugs, medicaments and biological substances; Z88.6 Allergy status to analgesic agent; Z88.1 Allergy status to other antibiotic agents; Z88.5 Allergy status to narcotic agent; Z79.899 Other long term (current) drug therapy; Z87.891 Personal history of nicotine dependence
CPT/HCPCS: 36415; 71045; 74177; 80053; 82270; 85025; 85610; 85730; 96374; 96375; 99284; 99284-25; J1170; J2405; Q9967

== ENCOUNTER 2021-11-26 09:16 | Emergency (ER) | payer MEDICAID ==
[2021-11-26] MEDS ORDERED: Sodium Chloride 0.9% 10 ML Syringe FLUSH PRN (09:34)
[2021-11-26] MEDS: Sodium Chloride 0.9% 1,000 ML IV ONE (09:45)
[2021-11-26 10:13] LABS: ANION GAP 7.3 mmol/L (5-15); CHLORIDE,CL 101 mmol/L (98-107); SODIUM,NA 137 mmol/L (136-145)
[2021-11-26] MEDS: Ondansetron 4 MG/2 ML SDV IVPUSH ONE (10:18)
[2021-11-26 10:21] LABS: ESTIMATED GFR 110 mL/min (>=60)
[2021-11-26 10:27] VITALS: BP 125/56; PULSE 76
[2021-11-26] MEDS: Dexamethasone 4 MG/ML SDV IVPUSH ONE (10:39)
== END 2021-11-26 11:03 | disposition home or self-care (01) ==
LOC: KA.ED 09:16
DX: R10.84 Generalized abdominal pain (principal); L98.8 Other specified disorders of the skin and subcutaneous tissue; R79.82 Elevated C-reactive protein (CRP); R79.89 Other specified abnormal findings of blood chemistry; J44.9 Chronic obstructive pulmonary disease, unspecified; E66.9 Obesity, unspecified; Z87.891 Personal history of nicotine dependence; Z88.5 Allergy status to narcotic agent; Z88.0 Allergy status to penicillin; Z88.1 Allergy status to other antibiotic agents; Z88.8 Allergy status to other drugs, medicaments and biological substances; Z68.41 Body mass index [BMI] 40.0-44.9, adult
CPT/HCPCS: 36415; 80053; 82150; 83605; 83690; 83880; 85025; 86140; 96361; 96374; 96375; 99284; 99284-25; J1100; J2405; J7030

== ENCOUNTER 2021-12-08 08:21 | Emergency (ER) | payer OTHER, MEDICAID ==
[2021-12-08] MEDS ORDERED: HYDROmorphone 1 MG/ML Syringe IVPUSH ONE (08:54)
[2021-12-08] MEDS ORDERED: Ondansetron 4 MG/2 ML SDV IVPUSH ONE (08:54)
[2021-12-08] MEDS ORDERED: Iopamidol 755 Mg/ML 100 ML Bottle IV ONE (09:58)
[2021-12-08] MEDS ORDERED: Sodium Chloride 0.9% 50 ML IV SCH (10:00)
[2021-12-08] MEDS ORDERED: Acetaminophen 500 MG Tab PO ONE (11:04)
== END 2021-12-08 11:25 | disposition home or self-care (01) ==
LOC: KA.ED 08:21
DX: R07.89 Other chest pain (principal); J44.9 Chronic obstructive pulmonary disease, unspecified; E66.9 Obesity, unspecified; Z68.41 Body mass index [BMI] 40.0-44.9, adult; Z88.6 Allergy status to analgesic agent; Z88.8 Allergy status to other drugs, medicaments and biological substances; Z88.0 Allergy status to penicillin; Z88.1 Allergy status to other antibiotic agents; Z88.5 Allergy status to narcotic agent; Z79.899 Other long term (current) drug therapy; V48.5XXA Car driver injured in noncollision transport accident in traffic accident, initial encounter; Y92.410 Unspecified street and highway as the place of occurrence of the external cause
CPT/HCPCS: 36415; 70450; 71260; 72125; 74177; 80053; 85025; 96374; 96375; 99284; 99285-25; A9270-GY; J1170; J2405; Q9967